=== PATIENT | female | born 1975 | race Caucasian/White ===

== ENCOUNTER 2017-04-02 09:17 | Day surgery (SDC) | payer OTHER ==
[2017-03-31 10:37] VITALS: BMI 29.2
[~2017-04-02 09:17] MED LIST: DEXAMETHASONE SOD PHOSPHATE 10 MG/ML 1 ML VIAL IV ONE; HEPARIN SODIUM,PORCINE 5,000 UNIT/ML 1 ML VIAL SQ ONE; LACTATED RINGERS 1,000 ML IV SCH; ONDANSETRON 4 MG/2 ML VIAL IVP ONE; ceFAZolin 2 GM in SODIUM CHLORIDE 0.9% 100 ML IVPB ONE
[2017-04-02] MEDS ORDERED: LIDOCAINE 1% 20 ML VIAL (10MG/ML) FOR IV START INTRADERMA ONE (10:13)
[2017-04-02] MEDS: MIDAZOLAM 2 MG/2 ML VIAL IV PRN ×3 (10:14→12:20)
--- NOTE | 2017-04-02 10:54 | P.GSHP ---
History of Present Illness H&P Date: 04/02/17 Chief Complaint: T This a 41-year-old female who has had complaints of right upper quadrant pain. Her recent HIDA scan shows an elevated ejection fraction of percent consistent with biliary hyperkinesia. - Constitutional Constitutional: Reports as per HPI Past Medical History Additional Past Medical History / Comment(s): HX CROHN'S, CHRONIC SHOULDER PAIN ; Cyst under L armpit History of Any Multi-Drug Resistant Organisms: MRSA Date of last positivie culture/infection: 2000 MDRO Source:: abdomen Past Surgical History: Bowel Resection, Section, Hysterectomy, Joint Replacement Additional Past Surgical History / Comment(s): RT SHOULDER REPLACEMENT Past Anesthesia/Blood Transfusion Reactions: Motion Sickness Additional Past Anesthesia/Blood Transfusion Reaction / Comment(s): pt adopted Past Psychological History: Anxiety, Depression Smoking Status: Current every day smoker Past Alcohol Use History: Occasional Additional Past Alcohol Use History / Comment(s): smoked for about 10 years 1ppd Past Drug Use History: Marijuana Additional Drug Use History / Comment(s): pt reports occasional current use - Past Family History Mother Family Medical History: Unable to Obtain Additional Family Medical History / Comment(s): pt adopted Medications and Allergies Home Medications Medication Instructions Recorded Confirmed Type FLUoxetine HCL [PROzac] 40 mg PO QAM 07/01/14 04/02/17 History OLANZapine [ZyPREXA] 10 mg PO HS 05/05/16 04/02/17 History traZODone HCL 150 mg PO HS 05/21/16 04/02/17 History Ibuprofen [Motrin] 800 mg PO Q8HR PRN 08/09/16 04/02/17 History Loperamide [Imodium] 2 mg PO BID PRN 08/09/16 04/02/17 History Ondansetron [Zofran] 4 mg PO Q8HR PRN 08/09/16 04/02/17 History traMADol HCL [Ultram] 50 mg PO QID PRN 08/09/16 04/02/17 History busPIRone HCL [Buspar] 30 mg PO BID 09/03/16 04/02/17 History metroNIDAZOLE [Flagyl] 500 mg PO BID 09/03/16 04/02/17 History Allergies Allergy/AdvReac Type Severity Reaction Status Date / Time corn Allergy Nausea & Verified 04/02/17 09:49 Vomiting & Diarrhea grass pollen-perennial rye, Allergy Itching Verified 04/02/17 09:49 standar [grass poll-perennial rye,std] ketorolac tromethamine Allergy Rash/Hives Verified 04/02/17 09:49 [From Toradol] Surgical - Exam Vital Signs Temp Pulse Resp BP Pulse Ox 99.6 F 72 16 109/64 98 04/02/17 09:55 04/02/17 09:55 04/02/17 09:55 04/02/17 09:55 04/02/17 09:55 - General well developed, no distress - Eyes PERRL - ENT normal pinna - Neck no masses - Respiratory normal expansion - Cardiovascular Rhythm: regular - Abdomen Mild right upper pain Abdomen: soft Assessment and Plan Plan: Abnormal HIDA scan Biliary hypokinesis Chronic cholecystitis We'll perform laparoscopic cholecystectomy.
[2017-04-02] MEDS ORDERED: HYDROmorphone (PF) 1 MG/ML ONE (11:04)
[2017-04-02] MEDS ORDERED: GLYCOPYRROLATE 0.2 MG/ML 2 ML VIAL ONE (11:04)
[2017-04-02] MEDS ORDERED: ROCURONIUM BROMIDE 10 MG/ML 10 ML VIAL IV ONE (11:04)
[2017-04-02] MEDS ORDERED: LIDOCAINE 1% INJ 10MG/ML (20 ML MDV) ONE (11:04)
[2017-04-02] MEDS ORDERED: PROPOFOL 10 MG/ML 20 ML VIAL IV ONE (11:04)
[2017-04-02] MEDS ORDERED: fentaNYL (PF) 50 MCG/ML 2 ML AMP ONE (11:04)
[2017-04-02] MEDS ORDERED: SUCCINYLCHOLINE CHLORIDE 100 MG/5 ML SYR IV ONE (11:04)
[2017-04-02] MEDS ORDERED: MIDAZOLAM 2 MG/2 ML VIAL ONE (11:04)
[2017-04-02] MEDS ORDERED: NEOSTIGMINE 1 MG/ML 10 ML VIAL ONE (11:04)
[2017-04-02] MEDS ORDERED: BUPIVACAIN-EPI 0.25%-1:200,000 30 ML VIAL SQ ONE (11:32)
--- NOTE | 2017-04-02 11:53 | P.OP ---
Date of Procedure: 04/02/17 Preoperative Diagnosis: Cholecystitis Postoperative Diagnosis: Cholecystitis Procedure(s) Performed: Laparoscopic cholecystectomy Anesthesia: CHAUNCEY DONOVAN Surgeon: Loki Dahl Estimated Blood Loss (ml): 5 Pathology: other (Gallbladder) Condition: stable Disposition: PACU Description of Procedure: The patient was placed on the operating table. The patient received a general endotracheal tube anesthesia. The patients abdomen was prepped and draped in the usual sterile fashion. Through an infraumbilical stab incision, the fascia of the anterior abdominal wall was grasped with a pair of Kochers and then the Veress needle was placed in the peritoneal cavity. Position of the Veress needle was confirmed with positive drop test. The abdomen was then insufflated. After adequate insufflation, the 10 mm trocar was placed in the peritoneal cavity. Following this the laparoscope was placed in the peritoneal cavity. The patient was placed in the head-up, right side up position and then a 5 mm trocar was placed in the right lateral and right subcostal position under direct visualization. A 8 mm trocar was placed in the epigastric position. The gallbladder was grasped in the fundus and infundibulum. Traction on the gallbladder was placed in the lateral and the cephalad positions. The triangle of Calot was visualized.. The cystic duct was bluntly dissected until the union of the cystic duct and common bile duct was seen. The cystic duct was then divided and sealed with the Harmonic scissors. A PDS Endoloop was then placed throughout the cystic duct stump. The cystic artery divided and sealed with the Harmonic scissors. The gallbladder was then removed from the liver bed using Harmonic scissors. The gallbladder was then extracted through the epigastric port site. Operative field was checked for any bleeding spots and Harmonic scissors was used to coagulate the liver bed. The abdomen was irrigated. The trocars were removed. The skin was closed using interrupted 3-0 Vicryl suture. Dermabond dressing were applied. The patient tolerated the procedure well.
[2017-04-02] MEDS: HYDROmorphone 1 MG/ML 1 ML SYRINGE IVP PRN ×4 (12:00→12:24)
[2017-04-02 12:08] VITALS: TEMP 98.6
[2017-04-02 13:17] VITALS: RESP 18
[2017-04-02] MEDS ORDERED: HYDROcodone/APAP 7.5-325MG 1 EACH TAB PO ONE (13:22)
[2017-04-02 13:51] VITALS: BP 118/65; PULSE 85
== END 2017-04-02 14:11 | disposition home or self-care (01) ==
LOC: OR 09:17
PROVIDERS: ATTEND Surgery
DX: K81.1 Chronic cholecystitis (principal); Z87.19 Personal history of other diseases of the digestive system; F41.9 Anxiety disorder, unspecified; F32.9 Major depressive disorder, single episode, unspecified; F17.200 Nicotine dependence, unspecified, uncomplicated; Z79.899 Other long term (current) drug therapy; Z88.8 Allergy status to other drugs, medicaments and biological substances
CPT/HCPCS: 88304; 47562; J2250; J1644; J1100; J2710; J0690; J2405; J2001; J3010; J1170; J0330; J2704

== ENCOUNTER 2017-04-08 12:26 | Inpatient (IN) | payer OTHER ==
[2017-04-08] MEDS ORDERED: SODIUM CHLORIDE 0.9% 1,000 ML IV STA (14:17)
[2017-04-08] MEDS ORDERED: HYDROmorphone 1 MG/ML 1 ML SYRINGE IVP STA (14:17)
[2017-04-08] MEDS ORDERED: ONDANSETRON 4 MG/2 ML VIAL IVP STA (14:17)
--- NOTE | 2017-04-08 14:20 | ED ---
General Adult HPI - General Chief complaint: Abdominal Pain Stated complaint: NVD post surgery Time Seen by Provider: 04/08/17 13:00 Source: patient, RN notes reviewed Mode of arrival: ambulatory Limitations: no limitations - History of Present Illness Initial comments: This is a 41-year-old female who presents emergency Department complaining of abdominal pain for the last 30 days. Patient states she had her gallbladder out 6 days ago because the surgeon thought that would solve her abdominal pain problems. Patient states she stopped vomiting for 3 days. Over the last 3 days continues to vomit heavily. Patient states she's also having diarrhea. Patient denies any fever or chills. Patient states she has diffuse abdominal painat that spot of abdominal pain. Patient states she also has been drinking alcohol but she states not a lot. Patient denies any headache patient denies numbness weakness. Patient denies lightheadedness dizziness or near syncopal episode. Patient denies any dysuria hematuria urinary frequency. - Related Data Home Medications Medication Instructions Recorded Confirmed FLUoxetine HCL [PROzac] 40 mg PO QAM 07/01/14 04/08/17 OLANZapine [ZyPREXA] 10 mg PO HS 05/05/16 04/08/17 traZODone HCL 150 mg PO HS 05/21/16 04/08/17 Loperamide [Imodium] 2 mg PO BID PRN 08/09/16 04/08/17 Ondansetron [Zofran] 4 mg PO Q8HR PRN 08/09/16 04/08/17 busPIRone HCL [Buspar] 30 mg PO BID 09/03/16 04/08/17 HYDROcodone/APAP 7.5-325MG [[place] 1 tab PO Q4H PRN 04/08/17 04/08/17 7.5] Previous Rx's Medication Instructions Recorded Docusate [Colace] 100 mg PO BID #20 capsule 04/02/17 Allergies Allergy/AdvReac Type Severity Reaction Status Date / Time corn Allergy Nausea & Verified 04/08/17 15:56 Vomiting & Diarrhea grass pollen-perennial rye, Allergy Itching Verified 04/08/17 15:56 standar [grass poll-perennial rye,std] ketorolac tromethamine Allergy Rash/Hives Verified 04/08/17 15:56 [From Toradol] Review of Systems ROS Statement: Those systems with pertinent positive or pertinent negative responses have been documented in the HPI. ROS Other: All systems not noted in ROS Statement are negative. Past Medical History Additional Past Medical History / Comment(s): HX CROHN'S, CHRONIC SHOULDER PAIN ; Cyst under L armpit History of Any Multi-Drug Resistant Organisms: MRSA Date of last positivie culture/infection: 2000 MDRO Source:: abdomen Past Surgical History: Bowel Resection, Section, Cholecystectomy, Hysterectomy, Joint Replacement Additional Past Surgical History / Comment(s): RT SHOULDER REPLACEMENT Past Anesthesia/Blood Transfusion Reactions: Motion Sickness Additional Past Anesthesia/Blood Transfusion Reaction / Comment(s): pt adopted Past Psychological History: Anxiety, Depression Smoking Status: Current every day smoker Past Alcohol Use History: Occasional Additional Past Alcohol Use History / Comment(s): smoked for about 10 years 1ppd Past Drug Use History: Marijuana Additional Drug Use History / Comment(s): pt reports occasional current use - Past Family History Mother Family Medical History: Unable to Obtain Additional Family Medical History / Comment(s): pt adopted General Exam - General Exam Comments Initial Comments: GENERAL: Patient is well-developed and well-nourished. Patient is nontoxic and well- hydrated and is in mild distress. Patient has alcohol on her breath. ENT: Neck is soft and supple. No significant lymphadenopathy is noted. Oropharynx is clear. Moist mucous membranes. Neck has full range of motion without eliciting any pain. EYES: The sclera were anicteric and conjunctiva were pink and moist. Extraocular movements were intact and pupils were equal round and reactive to light. Eyelids were unremarkable. PULMONARY: Unlabored respirations. Good breath sounds bilaterally. No audible rales rhonchi or wheezing was noted. CARDIOVASCULAR: There is a regular rate and rhythm without any murmurs gallops or rubs. ABDOMEN: Abdomen is mildly distended and diffusely tender no rebound or guarding is note SKIN: Skin is clear with no lesions or rashes and otherwise unremarkable. NEUROLOGIC: Patient is alert and oriented x3. Cranial nerves II through XII are grossly intact. Motor and sensory are also intact. Normal speech, volume and content. Symmetrical smile. MUSCULOSKELETAL: Normal extremities with adequate strength and full range of motion. No lower extremity swelling or edema. No calf tenderness. LYMPHATICS: No significant lymphadenopathy is noted PSYCHIATRIC: Normal psychiatric evaluation. Limitations: no limitations Course Vital Signs 04/08/17 04/08/17 12:53 15:58 Temperature 99.5 F 98.8 F Pulse Rate 122 H 95 Respiratory 20 16 Rate Blood Pressure 119/59 104/59 O2 Sat by Pulse 96 99 Oximetry Medical Decision Making - Lab Data Result diagrams: 04/08/17 14:20 04/08/17 14:20 Lab Results 04/08/17 04/08/17 04/08/17 Range/Units 14:20 14:20 14:20 WBC 8.3 (3.8-10.6) k/uL RBC 4.74 (3.80-5.40) m/uL Hgb 15.6 (11.4-16.0) gm/dL Hct 46.8 H (34.0-46.0) % MCV 98.8 (80.0-100.0) fL MCH 32.9 (25.0-35.0) pg MCHC 33.3 (31.0-37.0) g/dL RDW 14.5 (11.5-15.5) % Plt Count 258 (150-450) k/uL Neutrophils % 69 % Lymphocytes % 19 % Monocytes % 7 % Eosinophils % 2 % Basophils % 0 % Neutrophils # 5.7 (1.3-7.7) k/uL Lymphocytes # 1.6 (1.0-4.8) k/uL Monocytes # 0.6 (0-1.0) k/uL Eosinophils # 0.1 (0-0.7) k/uL Basophils # 0.0 (0-0.2) k/uL Sodium 142 (137-145) mmol/L Potassium 4.1 (3.5-5.1) mmol/L Chloride 108 H (98-107) mmol/L Carbon Dioxide 16 L (22-30) mmol/L Anion Gap 18 mmol/L BUN 8 (7-17) mg/dL Creatinine 0.80 (0.52-1.04) mg/dL Est GFR (MDRD) Af Amer >60 (>60 ml/min/1.73 sqM) Est GFR (MDRD) Non-Af >60 (>60 ml/min/1.73 sqM) Glucose 102 H (74-99) mg/dL Plasma Lactic Acid Dion 1.9 (0.7-2.0) mmol/L Calcium 9.9 (8.4-10.2) mg/dL Total Bilirubin 1.7 H (0.2-1.3) mg/dL AST 235 H (14-36) U/L ALT 136 H (9-52) U/L Alkaline Phosphatase 273 H (38-126) U/L Total Protein 8.3 H (6.3-8.2) g/dL Albumin 5.0 (3.5-5.0) g/dL Amylase 412 H* (30-110) U/L Lipase 6178 H (23-300) U/L Urine Color Urine Appearance (Clear) Urine pH (5.0-8.0) Ur Specific [place] (1.001-1.035) Urine Protein (Negative) Urine Glucose (UA) (Negative) Urine Ketones (Negative) Urine Blood (Negative) Urine Nitrite (Negative) Urine Bilirubin (Negative) Urine Urobilinogen (<2.0) mg/dL Ur Leukocyte Esterase (Negative) Serum Alcohol 25 mg/dL 04/08/17 Range/Units 14:20 WBC (3.8-10.6) k/uL RBC (3.80-5.40) m/uL Hgb (11.4-16.0) gm/dL Hct (34.0-46.0) % MCV (80.0-100.0) fL MCH (25.0-35.0) pg MCHC (31.0-37.0) g/dL RDW (11.5-15.5) % Plt Count (150-450) k/uL Neutrophils % % Lymphocytes % % Monocytes % % Eosinophils % % Basophils % % Neutrophils # (1.3-7.7) k/uL Lymphocytes # (1.0-4.8) k/uL Monocytes # (0-1.0) k/uL Eosinophils # (0-0.7) k/uL Basophils # (0-0.2) k/uL Sodium (137-145) mmol/L Potassium (3.5-5.1) mmol/L Chloride (98-107) mmol/L Carbon Dioxide (22-30) mmol/L Anion Gap mmol/L BUN (7-17) mg/dL Creatinine (0.52-1.04) mg/dL Est GFR (MDRD) Af Amer (>60 ml/min/1.73 sqM) Est GFR (MDRD) Non-Af (>60 ml/min/1.73 sqM) Glucose (74-99) mg/dL Plasma Lactic Acid Dion (0.7-2.0) mmol/L Calcium (8.4-10.2) mg/dL Total Bilirubin (0.2-1.3) mg/dL AST (14-36) U/L ALT (9-52) U/L Alkaline Phosphatase (38-126) U/L Total Protein (6.3-8.2) g/dL Albumin (3.5-5.0) g/dL Amylase (30-110) U/L Lipase (23-300) U/L Urine Color Yellow Urine Appearance Clear (Clear) Urine pH 6.5 (5.0-8.0) Ur Specific [place] 1.007 (1.001-1.035) Urine Protein Trace H (Negative) Urine Glucose (UA) Negative (Negative) Urine Ketones Negative (Negative) Urine Blood Negative (Negative) Urine Nitrite Negative (Negative) Urine Bilirubin Negative (Negative) Urine Urobilinogen <2.0 (<2.0) mg/dL Ur Leukocyte Esterase Negative (Negative) Serum Alcohol mg/dL Disposition Clinical Impression: Pancreatitis, Alcohol abuse Disposition: ADMITTED IP TO THIS HOSP Referrals: Louann Carlos MD [Primary Care Provider] - 1-2 days Time of Disposition: 16:14
[2017-04-08 14:34] LABS: Basophils % (A) 0 %; CH 34.3; CHCM 34.8; Eosinophils # (A) 0.1 k/uL (0-0.7); Eosinophils % (A) 2 %; HCT 46.8 % (34.0-46.0); HDW 2.68; HGB 15.6 gm/dL (11.4-16.0); Luc # (Auto) 0.22; Luc % (Auto) 3; Lymphocytes # (A) 1.6 k/uL (1.0-4.8); Lymphocytes % (A) 19 %; MCH 32.9 pg (25.0-35.0); MCHC 33.3 g/dL (31.0-37.0); MCV 98.8 fL (80.0-100.0); Mean Platelet Volume 7.3; Monocytes # (A) 0.6 k/uL (0-1.0); Monocytes % (A) 7 %; Neutrophils # (A) 5.7 k/uL (1.3-7.7); Neutrophils % (A) 69 %; RBC 4.74 m/uL (3.80-5.40); RDW 14.5 % (11.5-15.5); WBC 8.3 k/uL (3.8-10.6); WBC (Perox) 7.96
[2017-04-08 14:35] LABS: Appearance,Urine Clear (Clear); Bilirubin,Urine Negative (Negative); Glucose,Urine (UA) Negative (Negative); Ketones,Urine Negative (Negative); Leukocyte Esterase,Urine Negative (Negative); Nitrite,Urine Negative (Negative); PH, Urine 6.5 (5.0-8.0); Protein,Urine Trace (Negative); Specific Gravity,Urine 1.007 (1.001-1.035); UA Billing (MACRO vs. MICRO) CHEM; Urobilinogen,Urine <2.0 mg/dL (<2.0)
[2017-04-08 14:52] LABS: ALT 136 U/L (9-52); AST 235 U/L (14-36); Alcohol 25 mg/dL; Alkaline Phosphatase 273 U/L (38-126); Anion Gap 18 mmol/L; Blood Urea Nitrogen 8 mg/dL (7-17); Calcium 9.9 mg/dL (8.4-10.2); Carbon Dioxide 16 mmol/L (22-30); Chloride 108 mmol/L (98-107); Glucose 102 mg/dL (74-99); Non-African American GFR(MDRD) >60 (>60 ml/min/1.73 sqM); Potassium 4.1 mmol/L (3.5-5.1); Sodium 142 mmol/L (137-145); Total Bilirubin 1.7 mg/dL (0.2-1.3); Total Protein 8.3 g/dL (6.3-8.2)
[2017-04-08 15:06] LABS: Amylase 412 U/L (30-110)
[2017-04-08] MEDS ORDERED: SODIUM CHLORIDE 0.9% 1,000 ML IV ONE (16:15)
[2017-04-08] MEDS: SODIUM CHLORIDE 0.9% 1,000 ML IV SCH ×2 (16:31→23:41)
[2017-04-08 17:13] LABS: Cholesterol 236 mg/dL (<200); HDL Cholesterol 61 mg/dL (40-60); Triglycerides 279 mg/dL (<150)
--- NOTE | 2017-04-08 17:47 | HP ---
DATE OF ADMISSION: Patient is a 41-year-old female who came in with complaints of abdominal pain in the epigastric area. Patient had this abdominal pain about 40 days and patient was diagnosed with cholelithiasis and cholecystitis and patient underwent cholecystectomy recently about 6 days ago. Patient's pain is sharp in nature 09/01 although patient does not appear to be in 09/01. Patient appeared to be comfortable, although she just received Dilaudid. When I evaluated the patient patient's pain radiates to the back. Patient was found to have elevated lipase and patient denies any regular alcohol usage, although patient apparently had a history of alcoholism in the past. Patient did drink alcohol today. Serum alcohol level of 25. Patient drinks alcohol twice a week she says. I am also obtaining triglyceride levels and I will also obtain an ultrasound of the liver to rule out any cholelithiasis. Patient does have elevated liver enzymes as well and lactic acid is 1.9. Patient will be started on IV fluids and patient will be made n.p.o. Will also obtain triglyceride level. Patient has occasional episodes of diarrhea and patient was having nausea, vomiting, multiple episodes yesterday. REVIEW OF SYSTEMS: CONSTITUTIONAL: No fever, no malaise, no fatigue. HEENT: No recent visual problems or hearing problems. Denied any sore throat. CARDIOVASCULAR: No chest pain, orthopnea, PND, no palpitations, no syncope. PULMONARY: No shortness of breath, no cough, no hemoptysis. GASTROINTESTINAL: As described in HPI. NEUROLOGICAL: No headaches, no weakness, no numbness. HEMATOLOGICAL: Denies any bleeding or petechiae. GENITOURINARY: Denies any burning micturition, frequency, or urgency. MUSCULOSKELETAL/RHEUMATOLOGICAL: Denies any joint pain, swelling, or any muscle pain. ENDOCRINE: Denies any polyuria or polydipsia. The rest of the 14 point review of systems is negative. Home medications include: Fluoxetine, olanzapine, trazodone, Imodium, ondansetron, buspirone, [place]. ALLERGIES: GRASS, POLLEN, KETOROLAC. Patient does have a history of alcoholism and psychiatric history appears to have either schizophrenia or bipolar disorder. SOCIAL HISTORY: Patient continues to smoke. Alcohol use as mentioned above. Denied any drug abuse. The patient smokes 1 pack per day. Patient used to use marijuana in the past. FAMILY HISTORY: Patient was adopted and she does not know any of her biological family history. PHYSICAL EXAMINATION: VITAL SIGNS: Temperature 98.1, pulse of 95, respiratory rate of 16, blood pressure is 104/59, saturating at 99% on room air. GENERAL: The patient is alert and oriented x3, not in any acute distress. Well developed, well nourished. HEENT: Pupils are round and equally reacting to light. EOMI. No scleral icterus. No conjunctival pallor. Normocephalic, atraumatic. No pharyngeal erythema. No thyromegaly. CARDIOVASCULAR: S1 and S2 present. No murmurs, rubs, or gallops. PULMONARY: Chest is clear to auscultation, no wheezing or crackles. ABDOMEN: Minimal epigastric abdominal tenderness was appreciated. No rebound or rigidity. Abdomen is soft. MUSCULOSKELETAL: No joint swelling or deformity. EXTREMITIES: No cyanosis, clubbing, or pedal edema. NEUROLOGICAL: Gross neurological examination did not reveal any focal deficits. SKIN: No rashes. LABORATORY DATA: Significant for low bicarbonate of 16, anion gap of 18, lactic acid is 1.9, chloride is 108, AST and ALT are elevated at 235 and 136. Alkaline phosphatase 273. Lipase is 6178. UA is essentially within normal limits. ASSESSMENT AND PLAN: 1. Abdominal pain, probably related to pancreatitis mostly alcoholic pancreatitis, although patient denies any regular alcohol use. I will also obtain a lipid panel. P.o. pain medications and IV fluids. 2. Metabolic acidosis, combination of minimal lactic acidosis along with hyperchloremia. Patient will be continued on IV fluids in the form of normal saline in spite of hyperchloremia and possibly alcoholic is also contributing to part of anion gap metabolic acidosis. 3. Elevated liver enzymes. I will rule out choledocholithiasis. My suspicion is low for ascending cholangitis. I will obtain ultrasound of the biliary tract. Patient had a recent cholecystectomy. 4. Bipolar versus schizophrenia versus depression for which her home medications will be continued. The patient will be made n.p.o. except meds. 5. Possible alcohol abuse. Extensive counseling was provided. Patient will be watched for withdrawals. Patient will be on Protonix for possibility of gastritis related to alcohol.
[2017-04-08 18:18] VITALS: BMI 29.1
[2017-04-08] MEDS: MORPHINE SULFATE 4 MG/ML SYRINGE IVP SCH (20:00)
[2017-04-08] MEDS: ONDANSETRON 4 MG/2 ML VIAL IVP PRN (20:06)
[2017-04-08] MEDS: NICOTINE 21MG/24HR PATCH TRANSDERM SCH (20:49)
[2017-04-08] MEDS: PANTOPRAZOLE 40 MG/10 ML VIAL IVP SCH (20:49)
[2017-04-08] MEDS: busPIRone HCl 10 MG TAB PO SCH (20:56)
[2017-04-08] MEDS ORDERED: traZODone HCL 50 MG TAB PO SCH (21:00)
[2017-04-08] MEDS ORDERED: OLANZapine 10 MG TAB PO SCH (21:00)
[2017-04-09] MEDS: MORPHINE SULFATE 4 MG/ML SYRINGE IVP SCH ×3 (04:13→08:12)
[2017-04-09 07:33] VITALS: BP 113/69; PULSE 69; TEMP 97.3
[2017-04-09] MEDS: ONDANSETRON 4 MG/2 ML VIAL IVP PRN ×2 (08:11→13:40)
[2017-04-09] MEDS: busPIRone HCl 10 MG TAB PO SCH (08:11)
[2017-04-09] MEDS: NICOTINE 21MG/24HR PATCH TRANSDERM SCH (08:11)
--- NOTE | 2017-04-09 08:19 | US ---
EXAMINATION TYPE: US gallbladder DATE OF EXAM: 04/08/2017 5:04 PM COMPARISON: NONE CLINICAL HISTORY: 41-year-old female elevated liver enzymes. NVD, GB removed 6 days ago. TECHNIQUE: Multiple sonographic images of the right upper quadrant are obtained. FINDINGS: Liver Length: 14.3 cm CBD: 0.7 cm CHD: 0.8 cm Right Kidney: 11.6 x 5.4 x 5.0 cm Pancreas: Suboptimal visualization of the pancreatic tail secondary to shadowing from bowel gas. The remainder is echogenic in appearance, questionable clinical significance. Liver: Normal homogeneous echotexture without focal lesion. Gallbladder: Surgically absent CBD: Mildly dilated. Right Kidney: No hydronephrosis. IMPRESSION: 1. The bile duct is mildly dilated (8 mm). The bile duct can measure up to 1 cm after cholecystectomy and still be normal. However, as the patient's cholecystectomy was relatively recent, recommend jennifer elation with alkaline phosphatase and bilirubin levels to exclude the possibility of biliary obstruct ion. 2. Echogenic appearance of the pancreas of questionable clinical significance. Correlate with amylase and lipase levels to exclude mild inflammation.
[2017-04-09] MEDS: SODIUM CHLORIDE 0.9% 1,000 ML IV SCH (08:21)
--- NOTE | 2017-04-09 08:50 | P.CONS ---
History of Present Illness - Reason for Consult Consult date: 04/09/17 Pancreatitis Requesting physician: Luz Velez - History of Present Illness 41-year-old female with a past medical history of Crohn's disease, bowel resection, remote EtOH abuse, cholecystectomy, ADHD, anxiety, bipolar depression , PTSD, cigarette marijuana usage. Patient has experienced intractable nausea vomiting abdominal pain for more than a month. Recently underwent laparoscopic cholecystectomy 04/02/[address] Dahl for cholecystitis. Surgical pathology indicated chronic cholecystitis and cholesterolosis with cholesterol polyp formation. Consultation requested for pancreatitis. Postoperatively patient stated her nausea vomiting abdominal pain subsided for about 2-3 days but then the pain returned. She drank 16-24 ounces of peppermint schnapps yesterday to help control the pain. Admission lipase 6178. Amylase 412. Total bilirubin 1.7. AST 235. ALT 136. Alkaline phosphatase 273. Serum alcohol level 25. Triglycerides 279. White count 8.3. Hemoglobin 15.6. Platelet 258. There are no prior laboratory studies to review since July 2016. Ultrasound abdomen reported CBD 7 mm. Common hepatic duct 8 mm. Echogenic appearance of pancreas possible mild inflammation. Review of Systems Constitutional: Denies fever, chills, sweats, weight gain, or loss. HEENT: Negative for migraines, blurred vision or loss, earaches, drainage, tinnitus, oral mucosal lesions, dysphagia, or odynophagia. CARDIAC: Negative for chest pain, arrhythmias, or palpitation. RESPIRATORY: Pneumonia. Nicotine cigarette dependency. Marijuana usage. Negative for shortness of breath, hemoptysis, cough, or sputum production. GI: See HPI for pertinent findings. : Negative for hematuria, urgency, frequency, polyuria, or dysuria. GYNc: Denies possibility of . Negative vaginal discharge. MUSCULOSKELETAL: Negative for muscle aches, swelling, arthritis, and arthralgias. NEUROLOGIC: Negative for stroke or TIA. ENDOCRINE: Negative for thyroid problems. SKIN: History of MRSA. Negative for rash or itching. PSYCHIATRIC: ADHD. Anxiety. Bipolar depression. PTSD. All systems: negative (See HPI) Past Medical History Past Medical History: GI Bleed, Pneumonia Additional Past Medical History / Comment(s): HX CROHN'S, CHRONIC SHOULDER PAIN ; Cyst under L armpit, cellulitis History of Any Multi-Drug Resistant Organisms: MRSA Year Discovered:: 2000 MDRO Source:: abdomen Past Surgical History: Bowel Resection, Section, Cholecystectomy, Hysterectomy, Joint Replacement Additional Past Surgical History / Comment(s): RT SHOULDER REPLACEMENT Past Anesthesia/Blood Transfusion Reactions: Motion Sickness Additional Past Anesthesia/Blood Transfusion Reaction / Comm: pt adopted Past Psychological History: ADD/ADHD, Anxiety, Bipolar, Depression, PTSD Smoking Status: Current every day smoker Past Alcohol Use History: Occasional Additional Past Alcohol Use History / Comment(s): smoked for about 20 years 1ppd Past Drug Use History: Marijuana Additional Drug Use History / Comment(s): pt reports occasional current use - Past Family History Mother Family Medical History: Unable to Obtain Additional Family Medical History / Comment(s): pt adopted Medications and Allergies Home Medications Medication Instructions Recorded Confirmed Type FLUoxetine HCL [PROzac] 40 mg PO QAM 07/01/14 04/08/17 History OLANZapine [ZyPREXA] 10 mg PO HS 05/05/16 04/08/17 History traZODone HCL 150 mg PO HS 05/21/16 04/08/17 History Loperamide [Imodium] 2 mg PO BID PRN 08/09/16 04/08/17 History Ondansetron [Zofran] 4 mg PO Q8HR PRN 08/09/16 04/08/17 History busPIRone HCL [Buspar] 30 mg PO BID 09/03/16 04/08/17 History HYDROcodone/APAP 7.5-325MG [[place] 1 tab PO Q4H PRN 04/08/17 04/08/17 History 7.5] Allergies Allergy/AdvReac Type Severity Reaction Status Date / Time corn Allergy Nausea & Verified 04/08/17 15:56 Vomiting & Diarrhea grass pollen-perennial rye, Allergy Itching Verified 04/08/17 15:56 standar [grass poll-perennial rye,std] ketorolac tromethamine Allergy Rash/Hives Verified 04/08/17 15:56 [From Toradol] Physical Exam Vitals: Vital Signs Temp Pulse Pulse Resp BP BP Pulse Ox 04/09/17 07:00 97.3 F L 69 20 113/69 97 04/09/17 04:11 73 112/65 04/08/17 22:58 97.1 F L 63 19 94/48 94 L 04/08/17 17:45 97.1 F L 69 20 94/59 95 04/08/17 15:58 98.8 F 95 16 104/59 99 04/08/17 12:53 99.5 F 122 H 20 119/59 96 Intake and Output 04/08/17 04/09/17 04/09/17 22:59 06:59 14:59 Other: # Voids 0 1 Weight 77 kg General appearance: The patient is alert, oriented, in no acute distress. HET: Head is normocephalic and atraumatic. Pupils are equal and reactive. Oropharynx is clear without lesions. Neck: Supple without lymphadenopathy. Trachea midline. Heart: S1 S2. Regular rate and rhythm. Lungs: No crackles or wheezes are heard. Abdomen: Soft, laparoscopic incisions with Steri-Strips without erythema or drainage, mild diffuse tenderness to the midepigastric left upper quadrant, nondistended with bowel sounds. No peritoneal signs. No palpable organomegaly or masses. Extremities: Normal skin color and turgor. No cyanosis, rash, ulceration, clubbing, or edema. Radial and pedal pulses are 2/4 bilaterally. Neurological: No focal deficits. Strength and sensation are grossly intact. Results CBC & Chem 7: 04/08/17 14:20 04/08/17 14:20 Labs: Abnormal Lab Results - Last 24 Hours (Table) 04/08/17 04/08/17 04/08/17 Range/Units 14:20 14:20 14:20 Hct 46.8 H (34.0-46.0) % Chloride 108 H (98-107) mmol/L Carbon Dioxide 16 L (22-30) mmol/L Glucose 102 H (74-99) mg/dL Total Bilirubin 1.7 H (0.2-1.3) mg/dL AST 235 H (14-36) U/L ALT 136 H (9-52) U/L Alkaline Phosphatase 273 H (38-126) U/L Total Protein 8.3 H (6.3-8.2) g/dL Triglycerides (<150) mg/dL Cholesterol (<200) mg/dL LDL Cholesterol, Calc (0-99) mg/dL HDL Cholesterol (40-60) mg/dL Amylase 412 H* (30-110) U/L Lipase 6178 H (23-300) U/L Urine Protein Trace H (Negative) 04/08/17 Range/Units 14:20 Hct (34.0-46.0) % Chloride (98-107) mmol/L Carbon Dioxide (22-30) mmol/L Glucose (74-99) mg/dL Total Bilirubin (0.2-1.3) mg/dL AST (14-36) U/L ALT (9-52) U/L Alkaline Phosphatase (38-126) U/L Total Protein (6.3-8.2) g/dL Triglycerides 279 H (<150) mg/dL Cholesterol 236 H (<200) mg/dL LDL Cholesterol, Calc 119 H (0-99) mg/dL HDL Cholesterol 61 H (40-60) mg/dL Amylase (30-110) U/L Lipase (23-300) U/L Urine Protein (Negative) US - abdomen: report reviewed Assessment and Plan (1) Alcoholic hepatitis Narrative/Plan: Suspect elevated liver enzymes are secondary to acute alcohol hepatitis however postoperative choledocholithiasis cannot be entirely excluded but felt to be less likely. Mild dilation of CBD postoperatively can be seen with post cholecystectomy changes. Status: Acute (2) Status post laparoscopic cholecystectomy Status: Acute (3) Pancreatitis Status: Acute (4) H/O ETOH abuse Status: Acute Plan: 1. Ultrasound abdomen reviewed. Await morning chemistries if improved continue supportive measures. ERCP not indicated at this time. 2. Nothing by mouth except medications. 3. Morning chemistries including liver function tests, amylase, lipase pending. 3. Continue GI prophylaxis and supportive measures. 4. Will follow with you. Alcohol abstinence strongly advised. Thank you for this kind referral and the opportunity to participate in the care of your patient. This consultation was discussed with Dr. Alford. The impression and plan of care have been directed as dictated.
[2017-04-09] MEDS ORDERED: FLUoxetine HCL 20 MG CAP PO SCH (09:00)
[2017-04-09 09:13] LABS: CH 33.1; CHCM 33.3; HCT 39.6 % (34.0-46.0); HDW 2.71; HGB 13.1 gm/dL (11.4-16.0); MCHC 33.1 g/dL (31.0-37.0); MCV 99.8 fL (80.0-100.0); Macrocytosis Slight; Mean Platelet Volume 7.5; RBC 3.96 m/uL (3.80-5.40); RDW 14.1 % (11.5-15.5); WBC 4.2 k/uL (3.8-10.6)
[2017-04-09 09:29] LABS: ALT 82 U/L (9-52); AST 46 U/L (14-36); Alkaline Phosphatase 156 U/L (38-126); Amylase 65 U/L (30-110); Anion Gap 7 mmol/L; Blood Urea Nitrogen 9 mg/dL (7-17); Calcium 8.2 mg/dL (8.4-10.2); Carbon Dioxide 24 mmol/L (22-30); Chloride 113 mmol/L (98-107); Glucose 88 mg/dL (74-99); Non-African American GFR(MDRD) >60 (>60 ml/min/1.73 sqM); Potassium 4.2 mmol/L (3.5-5.1); Sodium 144 mmol/L (137-145); Total Protein 6.2 g/dL (6.3-8.2)
[2017-04-09] MEDS: PANTOPRAZOLE 40 MG/10 ML VIAL IVP SCH (09:56)
[2017-04-09] MEDS ORDERED: MORPHINE SULFATE 4 MG/ML SYRINGE IVP PRN (11:08)
--- NOTE | 2017-04-09 12:33 | PN ---
Patient is a 41-year-old admitted with abdominal pain secondary to pancreatitis, which improved at this point of time. Liver enzymes improved and patient has a mildly dilated common bile duct on the ultrasound and will advance the diet. Counseling regarding alcohol use was provided. Will advance the diet today. If she is doing okay, patient will be discharged tomorrow. REVIEW OF SYSTEMS: ABDOMINAL: Continued abdominal pain, although the nausea improved and patient appears to have a bit of narcotic-seeking behavior and patient is taking morphine on a regular basis. CARDIOVASCULAR: No chest pain, no orthopnea, no PND, no palpitations. PULMONARY: Denied any shortness of breath. No cough or hemoptysis. NEUROLOGIC: No headaches, no weakness, no numbness. Medications were reviewed. PHYSICAL EXAMINATION: VITAL SIGNS: Temperature 97.3, pulse of 69, respiratory rate of 20, blood pressure is 113/69, saturating at 97% on room air. GENERAL: The patient is alert and oriented x3, not in any acute distress. Well developed, well nourished. HEENT: Pupils are round and equally reacting to light. EOMI. No scleral icterus. No conjunctival pallor. Normocephalic, atraumatic. No pharyngeal erythema. No thyromegaly. CARDIOVASCULAR: S1 and S2 present. No murmurs, rubs, or gallops. PULMONARY: Chest is clear to auscultation, no wheezing or crackles. ABDOMEN: Soft, nontender, nondistended, normoactive bowel sounds. No palpable organomegaly. MUSCULOSKELETAL: No joint swelling or deformity. EXTREMITIES: No cyanosis, clubbing, or pedal edema. NEUROLOGICAL: Gross neurological examination did not reveal any focal deficits. SKIN: No rashes. LABORATORY DATA: CBC, CMP abnormal for elevated chloride, because of which I am going to discontinue the IV fluids. Patient will be resumed on her home antidepressants and antipsychotics. ASSESSMENT AND PLAN: 1. Acute pancreatitis, mostly alcoholic. Triglycerides are not high enough to cause pancreatitis. 2. Rule out metabolic acidosis which improved, part of which is lactic acidosis and hyperchloremia contributing to some low bicarbonate as well. Her bicarbonate today is 24. 3. Elevated liver enzymes secondary to probably acute alcoholic hepatitis which are improving. 4. Bipolar disorder. 5. Alcohol abuse. Counseling was provided. Will advance the diet today. If she is doing okay clinically, patient probably can be discharged tomorrow. Will watch for any kind of withdrawals at this time.
[2017-04-09 13:14] LABS: Hepatitis B Surface Ag Index 0.05
[2017-04-09 13:20] LABS: Hepatitis B Core IgM Index 0.02
[2017-04-09 13:31] LABS: Hepatitis C Virus IgG Index 0.01
[2017-04-09 15:14] VITALS: RESP 18
[2017-04-10 15:06] LABS: Hepatitis C Virus IgG Ab Negative (Negative)
== END 2017-04-09 15:17 | disposition home or self-care (01) | DRG 439 ==
LOC: EC 12:26 → 4MS4W 16:15
PROVIDERS: ADMIT Internal Medicine; ATTEND Internal Medicine
DX: K85.20 Alcohol induced acute pancreatitis without necrosis or infection (principal); E87.2 Acidosis; E87.8 Other disorders of electrolyte and fluid balance, not elsewhere classified; K50.90 Crohn's disease, unspecified, without complications; K70.10 Alcoholic hepatitis without ascites; F31.9 Bipolar disorder, unspecified; Z90.49 Acquired absence of other specified parts of digestive tract; F10.20 Alcohol dependence, uncomplicated; F17.210 Nicotine dependence, cigarettes, uncomplicated; F41.9 Anxiety disorder, unspecified; F90.9 Attention-deficit hyperactivity disorder, unspecified type; F43.10 Post-traumatic stress disorder, unspecified; F12.90 Cannabis use, unspecified, uncomplicated; Y90.1 Blood alcohol level of 20-39 mg/100 ml; Z96.611 Presence of right artificial shoulder joint; Z88.9 Allergy status to unspecified drugs, medicaments and biological substances; Z79.899 Other long term (current) drug therapy
CPT/HCPCS: 36415; 76705; 80053; 80061; 80074; 80320; 81003; 82150; 83605; 83690; 85025; 85027

== ENCOUNTER 2017-04-10 12:20 | Emergency (ER) | payer OTHER ==
[2017-04-10 12:58] VITALS: RESP 18
[2017-04-10 15:59] VITALS: TEMP 98.2
[2017-04-10] MEDS ORDERED: METOCLOPRAMIDE 5 MG/ML 2 ML VIAL IVP STA (16:19)
[2017-04-10] MEDS ORDERED: SODIUM CHLORIDE 0.9% 500 ML IV STA (16:19)
[2017-04-10] MEDS ORDERED: PANTOPRAZOLE 40 MG/10 ML VIAL IVP STA (16:19)
[2017-04-10] MEDS ORDERED: HYDROmorphone 1 MG/ML 1 ML SYRINGE IVP STA (16:19)
[2017-04-10] MEDS ORDERED: SODIUM CHLORIDE 0.9% 1,000 ML IV STA (16:19)
--- NOTE | 2017-04-10 16:31 | ED ---
General Adult HPI - General Chief complaint: Abdominal Pain Stated complaint: Abd Pain Time Seen by Provider: 04/10/17 15:27 Source: patient, family, RN notes reviewed, old records reviewed Mode of arrival: ambulatory Limitations: no limitations - History of Present Illness Initial comments: Chief complaint and history of present illness a 41-year-old female here with his significant other. The patient was in hospital up until yesterday. At which time she was asked to leave because she was smoking the bathroom. She was admitted because of nausea vomiting and diarrhea as started some 5 days after having had a cholecystectomy. The patient's liver enzymes are elevated as well as her lipase. She was advised not to drink. She reports she went home yesterday she felt great showered clean the house and then started having nausea vomiting and diarrhea again during the evening. - Related Data Home Medications Medication Instructions Recorded Confirmed FLUoxetine HCL [PROzac] 40 mg PO QAM 07/01/14 04/10/17 OLANZapine [ZyPREXA] 10 mg PO HS 05/05/16 04/10/17 Loperamide [Imodium] 2 mg PO BID PRN 08/09/16 04/10/17 Ondansetron [Zofran] 4 mg PO Q8HR PRN 08/09/16 04/10/17 busPIRone HCL [Buspar] 30 mg PO BID 09/03/16 04/10/17 Albuterol Inhaler [Ventolin Hfa 1 - 2 puff INHALATION RT-Q6H PRN 04/10/17 Inhaler] traZODone HCL 200 mg PO HS 04/10/17 04/10/17 Previous Rx's Medication Instructions Recorded Hydrocodone/Acetaminophen [[place] 1 each PO Q6HR PRN #10 tab 04/10/17 5-325] Ondansetron Odt [Zofran ODT] 4 mg PO Q8HR PRN #10 tab 04/10/17 Prochlorperazine Suppository 25 mg RECTAL BID #5 supp 04/10/17 [Compazine] Allergies Allergy/AdvReac Type Severity Reaction Status Date / Time corn Allergy Nausea & Verified 04/10/17 15:46 Vomiting & Diarrhea grass pollen-perennial rye, Allergy Itching Verified 04/10/17 15:46 standar [grass poll-perennial rye,std] ketorolac tromethamine Allergy Rash/Hives Verified 04/10/17 15:46 [From Toradol] Review of Systems ROS Statement: Those systems with pertinent positive or pertinent negative responses have been documented in the HPI. Review of systems. The patient's denying headache or visual acuity changes she has her epigastric area discomfort that goes through to the back and right upper quadrant discomfort. Nausea vomiting and loose stools. No rashes. No neuro deficits. Denies fever at this time. All systems are reviewed. Past medical problems significant for a GI bleed, pneumonia, colitis, she's had MRSA with the umbilical area did infection and abscess. Which contaminated the bowel per patient and she needed a bowel resection. She also had a , cholecystectomy last week, hysterectomy total, right shoulder replacement. The patient's patient has ALLERGIES to Court, grass pollen perennial riding, stand or ketorolac, tromethamine. The patient smokes, including marijuana, and she does drink alcohol on occasion. ROS Other: All systems not noted in ROS Statement are negative. Past Medical History Past Medical History: GI Bleed, Pneumonia Additional Past Medical History / Comment(s): HX CROHN'S, CHRONIC SHOULDER PAIN ; Cyst under L armpit, cellulitis History of Any Multi-Drug Resistant Organisms: MRSA Date of last positivie culture/infection: 2000 MDRO Source:: abdomen Past Surgical History: Bowel Resection, Section, Cholecystectomy, Hysterectomy, Joint Replacement Additional Past Surgical History / Comment(s): RT SHOULDER REPLACEMENT Past Anesthesia/Blood Transfusion Reactions: Motion Sickness Additional Past Anesthesia/Blood Transfusion Reaction / Comment(s): pt adopted Past Psychological History: ADD/ADHD, Anxiety, Bipolar, Depression, PTSD Smoking Status: Current every day smoker Past Alcohol Use History: Occasional Additional Past Alcohol Use History / Comment(s): smoked for about 20 years 1ppd Past Drug Use History: Marijuana Additional Drug Use History / Comment(s): pt reports occasional current use - Past Family History Mother Family Medical History: Unable to Obtain Additional Family Medical History / Comment(s): pt adopted General Exam - General Exam Comments Initial Comments: General: The patient is awake and alert, he with a complaint of nausea vomiting diarrhea and epigastric pain. No blood in the vomit. No blood in the stool. Eye: Pupils are equal, round and reactive to light, extra-ocular movements are intact ; there is normal conjunctiva bilaterally. No signs of icterus. Ears, nose, mouth and throat: There are moist mucous membranes and no oral lesions. Neck: The neck is supple, there is no tenderness. Cardiovascular: There is a regular rate and rhythm. No murmur, rub or gallop is appreciated. Respiratory: Lungs are clear to auscultation, respirations are non-labored, breath sounds are equal. No wheezes, stridor, rales, or rhonchi. Gastrointestinal: Abdomen is tender epigastric region to the right upper quadrant. Palpable liver edge. Active bowel sounds. The radiates through to the back. Back: Epigastric pain radiates through to the back. Musculoskeletal: Normal ROM, no tenderness, There is no pedal edema. There is no calf tenderness or swelling. Sensation intact. Neurological: No evidence of any focal or lateralizing findings, neuro intact. Skin: Skin is warm and dry and no rashes or lesions are noted. Psychiatric: History of bipolar disorder Limitations: no limitations Course Vital Signs 04/10/17 04/10/17 12:56 15:58 Temperature 98.3 F 98.2 F Pulse Rate 96 70 Respiratory 18 18 Rate Blood Pressure 124/78 121/67 O2 Sat by Pulse 96 Oximetry Medical Decision Making - Medical Decision Making Medical decision making; patient's white count 5 hemoglobin 13.6 hematocrit of 40, potassium 4.1 with a BUN of 4 creatinine 0.7 and GFR greater than 60. Glucose 90. ALT 64. Amylase lipase within normal limits. X-ray of the abdomen was done and reviewed by radiologist his final impression is calcifications within the pelvis. Correlate for ureteral stones versus phleboliths. #2 nonspecific abdomen. As read by Dr. Falcon Patient is feeling better and the labs today compared to those just 2 days ago or significantly better. Only the ALT slightly elevated at 64. Otherwise amylase lipase normal, white count normal. The patient will be discharged home she is requesting a little more morphine before she goes. The patient be placed on analgesics, as well as Pepto-Bismol and Zofran . If she continues to vomit on Zofran prescription for Compazine was also provided. Patient is advised follow-up with family physician. Strongly advised not to drink any alcohol. - Lab Data Result diagrams: 04/10/17 17:15 04/10/17 17:15 Lab Results 0504/10/17 04/10/17 Range/Units 17:15 17:15 17:15 WBC 5.0 (3.8-10.6) k/uL RBC 4.09 (3.80-5.40) m/uL Hgb 13.6 (11.4-16.0) gm/dL Hct 40.3 (34.0-46.0) % MCV 98.4 (80.0-100.0) fL MCH 33.3 (25.0-35.0) pg MCHC 33.9 (31.0-37.0) g/dL RDW 13.8 (11.5-15.5) % Plt Count 194 (150-450) k/uL Neutrophils % 61 % Lymphocytes % 25 % Monocytes % 7 % Eosinophils % 5 % Basophils % 1 % Neutrophils # 3.0 (1.3-7.7) k/uL Lymphocytes # 1.2 (1.0-4.8) k/uL Monocytes # 0.4 (0-1.0) k/uL Eosinophils # 0.2 (0-0.7) k/uL Basophils # 0.0 (0-0.2) k/uL Sodium 141 (137-145) mmol/L Potassium 4.1 (3.5-5.1) mmol/L Chloride 108 H (98-107) mmol/L Carbon Dioxide 23 (22-30) mmol/L Anion Gap 10 mmol/L BUN 4 L (7-17) mg/dL Creatinine 0.70 (0.52-1.04) mg/dL Est GFR (MDRD) Af Amer >60 (>60 ml/min/1.73 sqM) Est GFR (MDRD) Non-Af >60 (>60 ml/min/1.73 sqM) Glucose 90 (74-99) mg/dL Plasma Lactic Acid Dion 0.8 (0.7-2.0) mmol/L Calcium 9.1 (8.4-10.2) mg/dL Total Bilirubin 0.8 (0.2-1.3) mg/dL AST 27 (14-36) U/L ALT 64 H (9-52) U/L Alkaline Phosphatase 123 (38-126) U/L Total Protein 6.9 (6.3-8.2) g/dL Albumin 4.3 (3.5-5.0) g/dL Amylase 40 (30-110) U/L Lipase 137 (23-300) U/L Urine Color Urine Appearance (Clear) Urine pH (5.0-8.0) Ur Specific [place] (1.001-1.035) Urine Protein (Negative) Urine Glucose (UA) (Negative) Urine Ketones (Negative) Urine Blood (Negative) Urine Nitrite (Negative) Urine Bilirubin (Negative) Urine Urobilinogen (<2.0) mg/dL Ur Leukocyte Esterase (Negative) Urine RBC (0-5) /hpf Urine WBC (0-5) /hpf Ur Squamous Epith Cells (0-4) /hpf Amorphous Sediment (None) /hpf Urine Bacteria (None) /hpf 04/10/17 Range/Units 17:15 WBC (3.8-10.6) k/uL RBC (3.80-5.40) m/uL Hgb (11.4-16.0) gm/dL Hct (34.0-46.0) % MCV (80.0-100.0) fL MCH (25.0-35.0) pg MCHC (31.0-37.0) g/dL RDW (11.5-15.5) % Plt Count (150-450) k/uL Neutrophils % % Lymphocytes % % Monocytes % % Eosinophils % % Basophils % % Neutrophils # (1.3-7.7) k/uL Lymphocytes # (1.0-4.8) k/uL Monocytes # (0-1.0) k/uL Eosinophils # (0-0.7) k/uL Basophils # (0-0.2) k/uL Sodium (137-145) mmol/L Potassium (3.5-5.1) mmol/L Chloride (98-107) mmol/L Carbon Dioxide (22-30) mmol/L Anion Gap mmol/L BUN (7-17) mg/dL Creatinine (0.52-1.04) mg/dL Est GFR (MDRD) Af Amer (>60 ml/min/1.73 sqM) Est GFR (MDRD) Non-Af (>60 ml/min/1.73 sqM) Glucose (74-99) mg/dL Plasma Lactic Acid Dion (0.7-2.0) mmol/L Calcium (8.4-10.2) mg/dL Total Bilirubin (0.2-1.3) mg/dL AST (14-36) U/L ALT (9-52) U/L Alkaline Phosphatase (38-126) U/L Total Protein (6.3-8.2) g/dL Albumin (3.5-5.0) g/dL Amylase (30-110) U/L Lipase (23-300) U/L Urine Color Light Yellow Urine Appearance Cloudy H (Clear) Urine pH 5.5 (5.0-8.0) Ur Specific [place] 1.005 (1.001-1.035) Urine Protein Negative (Negative) Urine Glucose (UA) Negative (Negative) Urine Ketones Negative (Negative) Urine Blood Negative (Negative) Urine Nitrite Negative (Negative) Urine Bilirubin Negative (Negative) Urine Urobilinogen <2.0 (<2.0) mg/dL Ur Leukocyte Esterase Negative (Negative) Urine RBC 1 (0-5) /hpf Urine WBC 2 (0-5) /hpf Ur Squamous Epith Cells 4 (0-4) /hpf Amorphous Sediment Rare H (None) /hpf Urine Bacteria Occasional H (None) /hpf Disposition Clinical Impression: Nausea vomiting and diarrhea Disposition: HOME SELF-CARE Condition: Fair Instructions: Acute Nausea and Vomiting (ED) Additional Instructions: Use Zofran for nausea if not effective use Compazine suppository. His medications as directed for discomfort. Use Pepto-Bismol. No alcohol. Follow- up with family physician. Prescriptions: Hydrocodone/Acetaminophen [[place] 5-325] 1 each PO Q6HR PRN #10 tab PRN Reason: Pain Ondansetron Odt [Zofran ODT] 4 mg PO Q8HR PRN #10 tab PRN Reason: Nausea Prochlorperazine Suppository [Compazine] 25 mg RECTAL BID #5 supp Referrals: Louann Carlos MD [Primary Care Provider] - 1-2 days
[2017-04-10 17:34] LABS: Basophils % (A) 1 %; CHCM 34.7; Eosinophils # (A) 0.2 k/uL (0-0.7); Eosinophils % (A) 5 %; HCT 40.3 % (34.0-46.0); HGB 13.6 gm/dL (11.4-16.0); Luc # (Auto) 0.08; Luc % (Auto) 2; Lymphocytes # (A) 1.2 k/uL (1.0-4.8); Lymphocytes % (A) 25 %; MCH 33.3 pg (25.0-35.0); MCHC 33.9 g/dL (31.0-37.0); MCV 98.4 fL (80.0-100.0); Mean Platelet Volume 7.5; Monocytes # (A) 0.4 k/uL (0-1.0); Monocytes % (A) 7 %; Neutrophils % (A) 61 %; RBC 4.09 m/uL (3.80-5.40); RDW 13.8 % (11.5-15.5); WBC (Perox) 4.98
[2017-04-10 17:45] LABS: Amorphous Sediment,Urine Rare /hpf; Appearance,Urine Cloudy (Clear); Bacteria,Urine Occasional /hpf; Bilirubin,Urine Negative (Negative); Glucose,Urine (UA) Negative (Negative); Ketones,Urine Negative (Negative); Leukocyte Esterase,Urine Negative (Negative); Nitrite,Urine Negative (Negative); PH, Urine 5.5 (5.0-8.0); Particle Count 5269; Protein,Urine Negative (Negative); RBC,Urine 1 /hpf (0-5); Specific Gravity,Urine 1.005 (1.001-1.035); Squamous Epithelial Cell,Urine 4 /hpf (0-4); UA Billing (MACRO vs. MICRO) MICRO; Urobilinogen,Urine <2.0 mg/dL (<2.0); WBC,Urine 2 /hpf (0-5)
--- NOTE | 2017-04-10 17:47 | XR ---
EXAMINATION TYPE: XR abdomen 2V DATE OF EXAM: 04/10/2017 5:41 PM COMPARISON: NONE INDICATION: Epigastric pain TECHNIQUE: Single view abdomen upright view FINDINGS: There is a normal bowel gas pattern. Psoas margins are normal. No organomegaly is present. No free air is evident. No suspicious differential air-fluid levels are evident. There are couple of calcifications within the pelvis. Distal ureteral stones or phleboliths could be considered IMPRESSION: 1. Calcifications within the pelvis. Correlate for ureteral stones versus phleboliths. 2. Nonspecific abdomen
[2017-04-10 17:50] LABS: ALT 64 U/L (9-52); AST 27 U/L (14-36); Alkaline Phosphatase 123 U/L (38-126); Amylase 40 U/L (30-110); Anion Gap 10 mmol/L; Blood Urea Nitrogen 4 mg/dL (7-17); Calcium 9.1 mg/dL (8.4-10.2); Carbon Dioxide 23 mmol/L (22-30); Chloride 108 mmol/L (98-107); Glucose 90 mg/dL (74-99); Non-African American GFR(MDRD) >60 (>60 ml/min/1.73 sqM); Potassium 4.1 mmol/L (3.5-5.1); Sodium 141 mmol/L (137-145); Total Bilirubin 0.8 mg/dL (0.2-1.3); Total Protein 6.9 g/dL (6.3-8.2)
[2017-04-10] MEDS ORDERED: MORPHINE SULFATE 2 MG/ML SYRINGE IVP ONE (18:10)
[2017-04-10 18:44] VITALS: BP 103/64; PULSE 79
== END 2017-04-10 18:59 | disposition home or self-care (01) ==
LOC: EC 12:20
DX: R10.13 Epigastric pain (principal); R10.32 Left lower quadrant pain; R11.2 Nausea with vomiting, unspecified; R19.7 Diarrhea, unspecified; F90.9 Attention-deficit hyperactivity disorder, unspecified type; F31.9 Bipolar disorder, unspecified; F41.9 Anxiety disorder, unspecified; F43.10 Post-traumatic stress disorder, unspecified; F17.200 Nicotine dependence, unspecified, uncomplicated; Z79.899 Other long term (current) drug therapy; Z88.6 Allergy status to analgesic agent; Z91.018 Allergy to other foods; Z91.048 Other nonmedicinal substance allergy status
CPT/HCPCS: 36415; 80053; 82150; 83605; 83690; 85025; 81001; 87086; 74020; 99284; 96374; 96375 ×3; 96361 ×2; J2765; J2270; J1170; C9113

== ENCOUNTER 2017-05-29 14:52 | Inpatient (IN) | payer OTHER ==
[2017-05-29] MEDS ORDERED: NALOXONE 0.4 MG/ML 10 ML VIAL IVP STA (15:14)
[2017-05-29] MEDS ORDERED: ONDANSETRON 4 MG/2 ML VIAL IVP STA (15:32)
[2017-05-29] MEDS ORDERED: SODIUM CHLORIDE 0.9% 1,000 ML IV ONE (16:02)
[2017-05-29] MEDS ORDERED: ACETAMINOPHEN TAB 500 MG TAB PO STA (16:02)
[2017-05-29] MEDS ORDERED: SODIUM CHLORIDE 0.9% 500 ML IV ONE (16:02)
[2017-05-29] MEDS ORDERED: IBUPROFEN 600 MG TAB PO STA (16:02)
--- NOTE | 2017-05-29 16:20 | XR ---
EXAMINATION TYPE: XR chest 2V DATE OF EXAM: 05/29/2017 COMPARISON: 09/26/2013 HISTORY: 41-year-old female with difficulty breathing TECHNIQUE: PA and lateral views FINDINGS: Heart is normal size. Aorta and pulmonary vasculature within normal limits. [place]andy atelectasis in th e lower lungs. No consolidation or pleural effusion. IMPRESSION: No acute cardiopulmonary process.
[2017-05-29 16:22] LABS: Basophils # (A) 0.1 k/uL (0-0.2); Basophils % (A) 1 %; CH 33.1; CHCM 34.2; Eosinophils # (A) 0.6 k/uL (0-0.7); Eosinophils % (A) 5 %; HCT 39.8 % (34.0-46.0); HGB 14.4 gm/dL (11.4-16.0); Luc # (Auto) 0.38; Luc % (Auto) 3; Lymphocytes # (A) 3.2 k/uL (1.0-4.8); Lymphocytes % (A) 27 %; MCH 35.1 pg (25.0-35.0); MCHC 36.1 g/dL (31.0-37.0); MCV 97.1 fL (80.0-100.0); Monocytes # (A) 0.9 k/uL (0-1.0); Monocytes % (A) 8 %; Neutrophils # (A) 6.8 k/uL (1.3-7.7); Neutrophils % (A) 57 %; RDW 13.7 % (11.5-15.5); WBC 11.8 k/uL (3.8-10.6); WBC (Perox) 11.98
--- NOTE | 2017-05-29 16:34 | ED ---
General Adult HPI - General Source: family, RN notes reviewed Mode of arrival: wheelchair Limitations: no limitations <Anibal Corbin - Last Filed: 05/29/17 17:17> <Jeremy Melvin - Last Filed: 05/29/17 18:29> - General Chief complaint: Altered Mental Status Stated complaint: Overdose Time Seen by Provider: 05/29/17 14:52 - History of Present Illness Initial comments: This is a 41-year-old female who presents emergency department after snorting heroin. Patient was becoming obtunded and was brought to the emergency department. Patient was given 2 of Narcan in the emergency department and came back to her baseline. Patient had no other complaints at this time however she did have a fever so she will be worked up for her fever and she was in agreement with this. Patient was vomiting after the Narcan so she was given Zofran. Patient denies any headache patient denies numbness weakness. Patient denies chest pain difficult breathing or shortness of breath. Patient denies any fever or chills that she knows of. Patient denies any cough per patient denies abdominal pain patient denies nausea vomiting or diarrhea. (Anibal Corbin) - Related Data Home Medications Medication Instructions Recorded Confirmed FLUoxetine HCL [PROzac] 40 mg PO QAM 07/01/14 05/29/17 busPIRone HCL [Buspar] 30 mg PO BID 09/03/16 05/29/17 Albuterol Sulfate [Ventolin Hfa] 1 - 2 puff INHALATION RT-Q6H PRN 05/29/1705/29 Beclomethasone Dipropionate [Qvar 1 puff INHALATION RT-BID 05/29/17 05/29/17 40 mcg] Dicyclomine [Bentyl] 20 mg PO QID 05/29/17 05/29/17 Montelukast [Singulair] 10 mg PO DAILY 05/29/17 05/29/17 Omeprazole [PriLOSEC] 20 mg PO AC-BID 05/29/17 05/29/17 Promethazine HCl 12.5 mg PO BID 05/29/17 05/29/17 traMADol HCL [Ultram] 50 mg PO BID PRN 05/29/17 05/29/17 traZODone HCL 150 mg PO HS 05/29/17 05/29/17 Previous Rx's Medication Instructions Recorded Prochlorperazine Suppository 25 mg RECTAL BID #5 supp 04/10/17 [Compazine] Allergies Allergy/AdvReac Type Severity Reaction Status Date / Time corn Allergy Nausea & Verified 04/10/17 15:46 Vomiting & Diarrhea grass pollen-perennial rye, Allergy Itching Verified 04/10/17 15:46 standar [grass poll-perennial rye,std] ketorolac tromethamine Allergy Rash/Hives Verified 04/10/17 15:46 [From Toradol] Review of Systems ROS Other: All systems not noted in ROS Statement are negative. <Anibal Corbin - Last Filed: 05/29/17 17:17> ROS Other: All systems not noted in ROS Statement are negative. <Jeremy Melvin - Last Filed: 05/29/17 18:29> ROS Statement: Those systems with pertinent positive or pertinent negative responses have been documented in the HPI. Past Medical History Past Medical History: GI Bleed, Pneumonia Additional Past Medical History / Comment(s): HX CROHN'S, CHRONIC SHOULDER PAIN ; Cyst under L armpit, cellulitis History of Any Multi-Drug Resistant Organisms: MRSA Date of last positivie culture/infection: 2000 MDRO Source:: abdomen Past Surgical History: Bowel Resection, Section, Cholecystectomy, Hysterectomy, Joint Replacement Additional Past Surgical History / Comment(s): RT SHOULDER REPLACEMENT Past Anesthesia/Blood Transfusion Reactions: Motion Sickness Additional Past Anesthesia/Blood Transfusion Reaction / Comment(s): pt adopted Past Psychological History: ADD/ADHD, Anxiety, Bipolar, Depression, PTSD Smoking Status: Current every day smoker Past Alcohol Use History: Occasional Past Drug Use History: Marijuana - Past Family History Mother Family Medical History: Unable to Obtain Additional Family Medical History / Comment(s): pt adopted <Anibal Corbin - Last Filed: 05/29/17 17:17> General Exam Limitations: no limitations <Anibal Corbin - Last Filed: 05/29/17 17:17> <Jeremy Melvin - Last Filed: 05/29/17 18:29> - General Exam Comments Initial Comments: GENERAL: Patient is well-developed and well-nourished. Patient is nontoxic and well- hydrated and is in mild distress. ENT: Neck is soft and supple. No significant lymphadenopathy is noted. Oropharynx is clear. Moist mucous membranes. Neck has full range of motion without eliciting any pain. EYES: The sclera were anicteric and conjunctiva were pink and moist. Extraocular movements were intact and pupils were equal round and reactive to light. Eyelids were unremarkable. PULMONARY: Unlabored respirations. Good breath sounds bilaterally. No audible rales rhonchi or wheezing was noted. CARDIOVASCULAR: There is a regular rate and rhythm without any murmurs gallops or rubs. ABDOMEN: Soft and nontender with normal bowel sounds. No palpable organomegaly was noted. There is no palpable pulsatile mass. SKIN: Skin is clear with no lesions or rashes and otherwise unremarkable. NEUROLOGIC: Patient is not answering questions and was altered significantly until she was given Narcan in which case she was alert and oriented sensory MUSCULOSKELETAL: Normal extremities with adequate strength and full range of motion. No lower extremity swelling or edema. No calf tenderness. LYMPHATICS: No significant lymphadenopathy is noted PSYCHIATRIC: Normal psychiatric evaluation. Patient denies any suicidal ideations (Anibal Corbin) Medical Decision Making - Lab Data Result diagrams: 05/29/17 16:11 05/29/17 16:11 <Anibal Corbin - Last Filed: 05/29/17 17:17> - Lab Data Result diagrams: 05/29/17 16:11 05/29/17 16:11 - Radiology Data Radiology results: image reviewed (Chest x-ray shows no acute process) <Jeremy Melvin - Last Filed: 05/29/17 18:29> - Medical Decision Making Dr. Melvin be taking over the care of this patient at 5 PM (Anibal Corbin) Patient became drowsy again and did respond well with Narcan. Patient will be placed on Narcan drip. Case discussed with practitioner Lauren kruger, who will admit for Dr. Weinstein, covering for Dr. Borges. Case also discussed with Dr. Deshpande, who will consult. Source of fever is not identifiable at this time. ( Jeremy Melvin) - Lab Data Lab Results 05/29/17 05/29/17 05/29/17 Range/Units 16:11 16:11 16:11 WBC 11.8 H (3.8-10.6) k/uL RBC 4.10 (3.80-5.40) m/uL Hgb 14.4 (11.4-16.0) gm/dL Hct 39.8 (34.0-46.0) % MCV 97.1 (80.0-100.0) fL MCH 35.1 H (25.0-35.0) pg MCHC 36.1 (31.0-37.0) g/dL RDW 13.7 (11.5-15.5) % Plt Count 276 (150-450) k/uL Neutrophils % 57 % Lymphocytes % 27 % Monocytes % 8 % Eosinophils % 5 % Basophils % 1 % Neutrophils # 6.8 (1.3-7.7) k/uL Lymphocytes # 3.2 (1.0-4.8) k/uL Monocytes # 0.9 (0-1.0) k/uL Eosinophils # 0.6 (0-0.7) k/uL Basophils # 0.1 (0-0.2) k/uL Sodium 137 (137-145) mmol/L Potassium 3.8 (3.5-5.1) mmol/L Chloride 98 (98-107) mmol/L Carbon Dioxide 25 (22-30) mmol/L Anion Gap 14 mmol/L BUN 6 L (7-17) mg/dL Creatinine 0.80 (0.52-1.04) mg/dL Est GFR (MDRD) Af Amer >60 (>60 ml/min/1.73 sqM) Est GFR (MDRD) Non-Af >60 (>60 ml/min/1.73 sqM) Glucose 218 H (74-99) mg/dL Plasma Lactic Acid Dion 1.9 (0.7-2.0) mmol/L Calcium 9.0 (8.4-10.2) mg/dL Total Bilirubin 1.0 (0.2-1.3) mg/dL AST 89 H (14-36) U/L ALT 49 (9-52) U/L Alkaline Phosphatase 117 (38-126) U/L Total Protein 7.5 (6.3-8.2) g/dL Albumin 4.7 (3.5-5.0) g/dL Urine Color Urine Appearance (Clear) Urine pH (5.0-8.0) Ur Specific [place] (1.001-1.035) Urine Protein (Negative) Urine Glucose (UA) (Negative) Urine Ketones (Negative) Urine Blood (Negative) Urine Nitrite (Negative) Urine Bilirubin (Negative) Urine Urobilinogen (<2.0) mg/dL Ur Leukocyte Esterase (Negative) Urine RBC (0-5) /hpf Urine WBC (0-5) /hpf Ur Squamous Epith Cells (0-4) /hpf Amorphous Sediment (None) /hpf Urine Bacteria (None) /hpf Hyaline Casts (0-2) /lpf Urine Mucus (None) /hpf Urine Opiates Screen (NotDetected) Ur Oxycodone Screen (NotDetected) Urine Methadone Screen (NotDetected) Ur Propoxyphene Screen (NotDetected) Ur Barbiturates Screen (NotDetected) U Tricyclic Antidepress (NotDetected) Ur Phencyclidine Scrn (NotDetected) Ur Amphetamines Screen (NotDetected) U Methamphetamines Scrn (NotDetected) U Benzodiazepines Scrn (NotDetected) Urine Cocaine Screen (NotDetected) U Marijuana (THC) Screen (NotDetected) 05/29/17 05/29/17 Range/Units 16:27 16:27 WBC (3.8-10.6) k/uL RBC (3.80-5.40) m/uL Hgb (11.4-16.0) gm/dL Hct (34.0-46.0) % MCV (80.0-100.0) fL MCH (25.0-35.0) pg MCHC (31.0-37.0) g/dL RDW (11.5-15.5) % Plt Count (150-450) k/uL Neutrophils % % Lymphocytes % % Monocytes % % Eosinophils % % Basophils % % Neutrophils # (1.3-7.7) k/uL Lymphocytes # (1.0-4.8) k/uL Monocytes # (0-1.0) k/uL Eosinophils # (0-0.7) k/uL Basophils # (0-0.2) k/uL Sodium (137-145) mmol/L Potassium (3.5-5.1) mmol/L Chloride (98-107) mmol/L Carbon Dioxide (22-30) mmol/L Anion Gap mmol/L BUN (7-17) mg/dL Creatinine (0.52-1.04) mg/dL Est GFR (MDRD) Af Amer (>60 ml/min/1.73 sqM) Est GFR (MDRD) Non-Af (>60 ml/min/1.73 sqM) Glucose (74-99) mg/dL Plasma Lactic Acid Dion (0.7-2.0) mmol/L Calcium (8.4-10.2) mg/dL Total Bilirubin (0.2-1.3) mg/dL AST (14-36) U/L ALT (9-52) U/L Alkaline Phosphatase (38-126) U/L Total Protein (6.3-8.2) g/dL Albumin (3.5-5.0) g/dL Urine Color Yellow Urine Appearance Cloudy H (Clear) Urine pH 5.5 (5.0-8.0) Ur Specific [place] 1.017 (1.001-1.035) Urine Protein 1+ H (Negative) Urine Glucose (UA) Negative (Negative) Urine Ketones Trace H (Negative) Urine Blood Negative (Negative) Urine Nitrite Negative (Negative) Urine Bilirubin Negative (Negative) Urine Urobilinogen 2.0 (<2.0) mg/dL Ur Leukocyte Esterase Negative (Negative) Urine RBC 2 (0-5) /hpf Urine WBC 4 (0-5) /hpf Ur Squamous Epith Cells 24 H (0-4) /hpf Amorphous Sediment Rare H (None) /hpf Urine Bacteria Occasional H (None) /hpf Hyaline Casts 25 H (0-2) /lpf Urine Mucus Rare H (None) /hpf Urine Opiates Screen Detected H (NotDetected) Ur Oxycodone Screen Detected H (NotDetected) Urine Methadone Screen Not Detected (NotDetected) Ur Propoxyphene Screen Not Detected (NotDetected) Ur Barbiturates Screen Not Detected (NotDetected) U Tricyclic Antidepress Not Detected (NotDetected) Ur Phencyclidine Scrn Not Detected (NotDetected) Ur Amphetamines Screen Not Detected (NotDetected) U Methamphetamines Scrn Not Detected (NotDetected) U Benzodiazepines Scrn Detected H (NotDetected) Urine Cocaine Screen Detected H (NotDetected) U Marijuana (THC) Screen Detected H (NotDetected) Critical Care Time Critical Care Time: Yes Total Critical Care Time: 32 <Jeremy Melvin - Last Filed: 05/29/17 18:29> Disposition <Anibal Corbin - Last Filed: 05/29/17 17:17> Decision Time: 18:28 <Jeremy Melvin - Last Filed: 05/29/17 18:29> Clinical Impression: Drug overdose Disposition: ADMITTED IP TO THIS [facility] Condition: Serious Referrals: Louann Carlos MD [Primary Care Provider] - 1-2 days
[2017-05-29 16:37] LABS: ALT 49 U/L (9-52); AST 89 U/L (14-36); Alkaline Phosphatase 117 U/L (38-126); Anion Gap 14 mmol/L; Blood Urea Nitrogen 6 mg/dL (7-17); Carbon Dioxide 25 mmol/L (22-30); Chloride 98 mmol/L (98-107); Glucose 218 mg/dL (74-99); Non-African American GFR(MDRD) >60 (>60 ml/min/1.73 sqM); Potassium 3.8 mmol/L (3.5-5.1); Sodium 137 mmol/L (137-145); Total Protein 7.5 g/dL (6.3-8.2)
[2017-05-29 16:47] LABS: Amorphous Sediment,Urine Rare /hpf; Appearance,Urine Cloudy (Clear); Bacteria,Urine Occasional /hpf; Bilirubin,Urine Negative (Negative); Glucose,Urine (UA) Negative (Negative); Ketones,Urine Trace (Negative); Leukocyte Esterase,Urine Negative (Negative); Mucus,Urine Rare /hpf; Nitrite,Urine Negative (Negative); PH, Urine 5.5 (5.0-8.0); Particle Count 17351; Protein,Urine 1+ (Negative); RBC,Urine 2 /hpf (0-5); Specific Gravity,Urine 1.017 (1.001-1.035); Squamous Epithelial Cell,Urine 24 /hpf (0-4); UA Billing (MACRO vs. MICRO) MICRO; WBC,Urine 4 /hpf (0-5)
[2017-05-29] MEDS ORDERED: NALOXONE 0.4 MG/ML 1 ML VIAL IV STA (16:56)
[2017-05-29] MEDS: NALOXONE 4 MG in SODIUM CHLORIDE 0.9% 100 ML IV SCH (18:14)
[2017-05-29] MEDS ORDERED: NALOXONE 0.4 MG/ML 1 ML VIAL IV PRN ×2 (18:29→20:43)
[2017-05-29] MEDS ORDERED: SODIUM CHLORIDE 0.9% 1,000 ML IV SCH (18:30)
[2017-05-29 20:14] LABS: Glucose,Whole Blood 101 mg/dL (75-99)
[2017-05-29] MEDS ORDERED: ACETAMINOPHEN TAB 325 MG TAB PO PRN (20:43)
[2017-05-29] MEDS ORDERED: ONDANSETRON 4 MG/2 ML VIAL IVP PRN (20:49)
[2017-05-29] MEDS ORDERED: IPRATROPIUM-ALBUTEROL 3 ML NEB INHALATION PRN (20:50)
--- NOTE | 2017-05-29 21:12 | P.CNPUL ---
History of Present Illness Consult date: 05/29/17 Requesting physician: Tamia Weinstein Reason for consult: other (Multiple drug overdose) Chief complaint: Altered mental status History of present illness: This is a 41-year-old female with history of Crohn's disease, COPD, heavy smoker , history of GERD, chronic pain syndrome, presented to the ER after she snorted some heroin which was given to her by a friend. Patient developed obtundation, and upon evaluation in the ER, patient responded well to Narcan given on 2 separate occasions. Patient continued to develop obtundation intermittently, hence she was placed on Narcan drip at 0.6 mg per hour, and admitted to the intensive care unit. Her drug screen came back positive for opiates, oxycodone , benzodiazepines, cocaine, and marijuana. Patient admits to polysubstance abuse. At the time of my evaluation in the ICU, patient was already on Narcan drip, awake, responsive, alert and oriented 3, and in no form of respiratory distress. However the patient was still on Narcan drip which will be discontinued in the next 4 hours. Presently, the patient denies any headaches, no blurred vision, no dizziness, no nausea no vomiting no abdominal pain no chest pain she does have history of Crohn's disease which is presently inactive. Denies any dysuria frequency or urgency, no melena, no hematemesis. Denies any cold intolerance, no polyuria, no polydipsia, denies any weight issues. Denies any symptoms of depression. Review of Systems 14 point review of systems were obtained, please refer to pertinent positives and negatives as per HPI. Past Medical History Past Medical History: GI Bleed, Pneumonia Additional Past Medical History / Comment(s): HX CROHN'S, CHRONIC SHOULDER PAIN ; Cyst under L armpit, cellulitis History of Any Multi-Drug Resistant Organisms: MRSA Date of last positivie culture/infection: 2000 MDRO Source:: abdomen Past Surgical History: Bowel Resection, Section, Cholecystectomy, Hysterectomy, Joint Replacement Additional Past Surgical History / Comment(s): RT SHOULDER REPLACEMENT Past Anesthesia/Blood Transfusion Reactions: Motion Sickness Additional Past Anesthesia/Blood Transfusion Reaction / Comment(s): pt adopted Past Psychological History: ADD/ADHD, Anxiety, Bipolar, Depression, PTSD Smoking Status: Current every day smoker Past Alcohol Use History: Occasional Past Drug Use History: Marijuana - Past Family History Mother Family Medical History: Unable to Obtain Additional Family Medical History / Comment(s): pt adopted Medications and Allergies Home Medications Medication Instructions Recorded Confirmed Type FLUoxetine HCL [PROzac] 40 mg PO QAM 07/01/14 05/29/17 History busPIRone HCL [Buspar] 30 mg PO BID 09/03/16 05/29/17 History Albuterol Sulfate [Ventolin Hfa] 1 - 2 puff INHALATION RT-Q6H PRN 05/29/1705/29 History Beclomethasone Dipropionate [Qvar 1 puff INHALATION RT-BID 05/29/17 05/29/17 History 40 mcg] Dicyclomine [Bentyl] 20 mg PO QID 05/29/17 05/29/17 History Montelukast [Singulair] 10 mg PO DAILY 05/29/17 05/29/17 History Omeprazole [PriLOSEC] 20 mg PO AC-BID 05/29/17 05/29/17 History Promethazine HCl 12.5 mg PO BID 05/29/17 05/29/17 History traMADol HCL [Ultram] 50 mg PO BID PRN 05/29/17 05/29/17 History traZODone HCL 150 mg PO HS 05/29/17 05/29/17 History Allergies Allergy/AdvReac Type Severity Reaction Status Date / Time corn Allergy Nausea & Verified 04/10/17 15:46 Vomiting & Diarrhea grass pollen-perennial rye, Allergy Itching Verified 04/10/17 15:46 standar [grass poll-perennial rye,std] ketorolac tromethamine Allergy Rash/Hives Verified 04/10/17 15:46 [From Toradol] Physical Exam Vitals: Vital Signs Temp Pulse Resp BP Pulse Ox 05/29/17 19:54 98.9 F 86 18 116/61 98 05/29/17 19:23 98.9 F 88 16 113/63 97 05/29/17 19:08 94 18 110/58 98 05/29/17 18:53 88 16 111/56 97 05/29/17 18:38 96 18 112/59 96 05/29/17 18:16 91 18 121/68 98 05/29/17 17:55 93 16 130/80 87 L 05/29/17 17:15 98.9 F 103 H 18 111/50 96 05/29/17 16:22 104 H 16 116/64 97 05/29/17 15:23 124 H 16 157/60 96 05/29/17 15:13 126 H 16 158/71 94 L 05/29/17 15:00 8 L 05/29/17 14:56 102.1 F H 131 H 16 149/65 80 L Intake and Output 05/29/17 05/29/17 05/29/17 06:59 14:59 22:59 Other: Weight 77.111 kg Patient Weight 05/30/17 06:59 Weight 77.111 kg Physical Exam: Revealed a 41-year-old female, obese, in no distress. HEENT:[Neck is supple.] [No neck masses.] [No thyromegaly.] [No JVD.] Chest: [Wheezing bilaterally was noted, more so on forced expiratory maneuver.] Cardiac Exam: [Normal S1 and S2, no S3 gallop, no murmur.] Abdomen: [Soft, nontender, no megaly, no rebound, no guarding, normal bowel sounds.] Extremities: [No clubbing, no edema, no cyanosis.] Neurological Exam: [No focal neurologic deficit.] Results - Laboratory Findings CBC and BMP: 05/29/17 16:11 05/29/17 16:11 Abnormal lab findings: Abnormal Labs 05/29/17 05/29/17 05/29/17 16:11 16:11 16:27 WBC 11.8 H MCH 35.1 H BUN 6 L Glucose 218 H POC Glucose (mg/dL) AST 89 H Urine Appearance Cloudy H Urine Protein 1+ H Urine Ketones Trace H Ur Squamous Epith Cells 24 H Amorphous Sediment Rare H Urine Bacteria Occasional H Hyaline Casts 25 H Urine Mucus Rare H Urine Opiates Screen Ur Oxycodone Screen U Benzodiazepines Scrn Urine Cocaine Screen U Marijuana (THC) Screen 05/29/17 05/29/17 16:27 20:12 WBC MCH BUN Glucose POC Glucose (mg/dL) 101 H AST Urine Appearance Urine Protein Urine Ketones Ur Squamous Epith Cells Amorphous Sediment Urine Bacteria Hyaline Casts Urine Mucus Urine Opiates Screen Detected H Ur Oxycodone Screen Detected H U Benzodiazepines Scrn Detected H Urine Cocaine Screen Detected H U Marijuana (THC) Screen Detected H - Diagnostic Findings Chest x-ray: image reviewed (No evidence of active disease noted.) Assessment and Plan Plan: Impression: Acute mental status change and obtundation secondary to multi- substance abuse and overdose, positive drug screen for multiple narcotics and sedatives noted. 2 history of Crohn's disease. 3 suspect COPD with acute exacerbation, no evidence of pneumonia. 4 history of bipolar disorder, depression, PTSD, ADHD. Recommendation: Patient will be kept on Narcan drip, she'll be placed on GI and DVT prophylaxis, we will place on bronchodilators, and possibly transfer out of the ICU to a regular medical floor. We'll continue to follow. Time with Patient: Greater than 30
[2017-05-29] MEDS: IPRATROPIUM-ALBUTEROL 3 ML NEB INHALATION SCH (23:34)
[2017-05-30] MEDS: NALOXONE 4 MG in SODIUM CHLORIDE 0.9% 100 ML IV SCH ×3 (00:26→12:51)
[2017-05-30] MEDS: methylPREDNISolone SOD SUCCI 40 MG/ML 1 ML VIAL IV SCH ×3 (00:47→17:38)
[2017-05-30] MEDS: IPRATROPIUM-ALBUTEROL 3 ML NEB INHALATION SCH ×5 (03:17→19:13)
[2017-05-30 05:35] LABS: Basophils % (A) 1 %; CH 33.9; CHCM 35.1; Eosinophils # (A) 0.1 k/uL (0-0.7); Eosinophils % (A) 1 %; HCT 35.4 % (34.0-46.0); HDW 2.61; HGB 12.5 gm/dL (11.4-16.0); Luc # (Auto) 0.06; Luc % (Auto) 2; Lymphocytes # (A) 0.7 k/uL (1.0-4.8); Lymphocytes % (A) 16 %; MCH 34.2 pg (25.0-35.0); MCHC 35.3 g/dL (31.0-37.0); MCV 96.8 fL (80.0-100.0); Mean Platelet Volume 7.7; Monocytes # (A) 0.2 k/uL (0-1.0); Monocytes % (A) 4 %; Neutrophils # (A) 3.2 k/uL (1.3-7.7); Neutrophils % (A) 76 %; RBC 3.66 m/uL (3.80-5.40); RDW 14.1 % (11.5-15.5); WBC 4.2 k/uL (3.8-10.6); WBC (Perox) 4.24
[2017-05-30 05:43] LABS: Anion Gap 10 mmol/L; Blood Urea Nitrogen 5 mg/dL (7-17); Calcium 8.1 mg/dL (8.4-10.2); Carbon Dioxide 24 mmol/L (22-30); Chloride 102 mmol/L (98-107); Glucose 111 mg/dL (74-99); Magnesium 1.9 mg/dL (1.6-2.3); Non-African American GFR(MDRD) >60 (>60 ml/min/1.73 sqM); Phosphorous 2.3 mg/dL (2.5-4.5); Sodium 136 mmol/L (137-145)
--- NOTE | 2017-05-30 07:20 | XR ---
EXAMINATION TYPE: XR chest 1V DATE OF EXAM: 05/30/2017 COMPARISON: 05/29/2017 HISTORY: 41 year-old female COPD TECHNIQUE: Single frontal view of the chest is obtained. FINDINGS: Heart is normal size. Aorta and pulmonary vasculature are within normal limits. Hazy bibasilar periph eral densities correspond to overlying soft tissue. No consolidation or pleural effusion. Postsurgica l changes at the distal right clavicle with a suture anchor at the greater tuberosity. IMPRESSION: No acute cardiopulmonary process.
[2017-05-30] MEDS ORDERED: PANTOPRAZOLE 40 MG TABLET PO SCH (07:30)
[2017-05-30] MEDS ORDERED: ENOXAPARIN 40 MG/0.4 ML SYRINGE SQ SCH (09:00)
[2017-05-30] MEDS ORDERED: NICOTINE 21MG/24HR PATCH TRANSDERM SCH (09:00)
--- NOTE | 2017-05-30 10:42 | P.PN ---
Subjective Principal diagnosis: Multiple drug overdose This is a 41-year-old female with history of Crohn's disease, COPD, heavy smoker , history of GERD, chronic pain syndrome, presented to the ER after she snorted some heroin which was given to her by a friend. Patient developed obtundation, and upon evaluation in the ER, patient responded well to Narcan given on 2 separate occasions. Patient continued to develop obtundation intermittently, hence she was placed on Narcan drip at 0.6 mg per hour, and admitted to the intensive care unit. Her drug screen came back positive for opiates, oxycodone , benzodiazepines, cocaine, and marijuana. Patient admits to polysubstance abuse. At the time of my evaluation in the ICU, patient was already on Narcan drip, awake, responsive, alert and oriented 3, and in no form of respiratory distress. However the patient was still on Narcan drip which will be discontinued in the next 4 hours. Presently, the patient denies any headaches, no blurred vision, no dizziness, no nausea no vomiting no abdominal pain no chest pain she does have history of Crohn's disease which is presently inactive. Denies any dysuria frequency or urgency, no melena, no hematemesis. Denies any cold intolerance, no polyuria, no polydipsia, denies any weight issues. Denies any symptoms of depression. Patient was reevaluated today on 05/30/2017, seems to be doing much better, relatively asymptomatic, Narcan drip was discontinued last night. Patient denies any specific complaints except for being tired, no headaches no blurred vision no dizziness no nausea no vomiting no abdominal pain no melena no hematemesis. She also denies any suicidal or homicidal thoughts. Labs were reviewed including complete metabolic profile and CBC. Objective - Vital Signs Vital signs: Vital Signs Temp 98.2 F 05/30/17 04:00 Pulse 77 05/30/17 10:39 Resp 23 05/30/17 09:30 BP 107/64 05/30/17 09:30 Pulse Ox 98 05/30/17 09:30 Intake & Output 05/29/17 05/30/17 05/30/17 18:59 06:59 18:59 Intake Total 380.5 40 Output Total 880 Balance -499.5 40 Weight 77 kg 78.1 kg Intake: IV 287.5 40 Naloxone 4 mg In Sodium 67.5 Chloride 0.9% 100 ml @ 0. 6 MG/HR 15 mls/hr IV . Q6H40M [facility] Rx#:[id number] Sodium Chloride 0.9% 1, 220 40 000 ml @ 20 mls/hr IV . Q24H [facility] Rx#:[id number] Intake, IV Titration 93 Amount Naloxone 4 mg In Sodium 93 Chloride 0.9% 100 ml @ 0. 6 MG/HR 15 mls/hr IV . Q6H40M [facility] Rx#:[id number] Output: Urine 880 Other: Voiding Method Bedside Commode Bedside Commode # Voids 0 - Exam Physical Exam: Revealed a 41-year-old female in no distress. HEENT:[Neck is supple.] [No neck masses.] [No thyromegaly.] [No JVD.] Chest: [Clear throughout, no crackles, no rhonchi, no wheezes.] Cardiac Exam: [Normal S1 and S2, no S3 gallop, no murmur.] Abdomen: [Soft, nontender, no megaly, no rebound, no guarding, normal bowel sounds.] Extremities: [No clubbing, no edema, no cyanosis.] Neurological Exam: [No focal neurologic deficit.] - Labs CBC & Chem 7: 05/30/17 04:29 05/30/17 04:29 Labs: Abnormal Lab Results - Last 24 Hours (Table) 05/29/17 05/29/17 05/29/17 Range/Units 16:11 16:11 16:27 WBC 11.8 H (3.8-10.6) k/uL RBC (3.80-5.40) m/uL MCH 35.1 H (25.0-35.0) pg Lymphocytes # (1.0-4.8) k/uL Sodium (137-145) mmol/L BUN 6 L (7-17) mg/dL Glucose 218 H (74-99) mg/dL POC Glucose (mg/dL) (75-99) mg/dL Calcium (8.4-10.2) mg/dL Phosphorus (2.5-4.5) mg/dL AST 89 H (14-36) U/L Urine Appearance Cloudy H (Clear) Urine Protein 1+ H (Negative) Urine Ketones Trace H (Negative) Ur Squamous Epith Cells 24 H (0-4) /hpf Amorphous Sediment Rare H (None) /hpf Urine Bacteria Occasional H (None) /hpf Hyaline Casts 25 H (0-2) /lpf Urine Mucus Rare H (None) /hpf Urine Opiates Screen (NotDetected) Ur Oxycodone Screen (NotDetected) U Benzodiazepines Scrn (NotDetected) Urine Cocaine Screen (NotDetected) U Marijuana (THC) Screen (NotDetected) 05/29/17 05/29/17 05/30/17 Range/Units 16:27 20:12 04:29 WBC (3.8-10.6) k/uL RBC 3.66 L (3.80-5.40) m/uL MCH (25.0-35.0) pg Lymphocytes # 0.7 L (1.0-4.8) k/uL Sodium (137-145) mmol/L BUN (7-17) mg/dL Glucose (74-99) mg/dL POC Glucose (mg/dL) 101 H (75-99) mg/dL Calcium (8.4-10.2) mg/dL Phosphorus (2.5-4.5) mg/dL AST (14-36) U/L Urine Appearance (Clear) Urine Protein (Negative) Urine Ketones (Negative) Ur Squamous Epith Cells (0-4) /hpf Amorphous Sediment (None) /hpf Urine Bacteria (None) /hpf Hyaline Casts (0-2) /lpf Urine Mucus (None) /hpf Urine Opiates Screen Detected H (NotDetected) Ur Oxycodone Screen Detected H (NotDetected) U Benzodiazepines Scrn Detected H (NotDetected) Urine Cocaine Screen Detected H (NotDetected) U Marijuana (THC) Screen Detected H (NotDetected) 05/30/17 Range/Units 04:29 WBC (3.8-10.6) k/uL RBC (3.80-5.40) m/uL MCH (25.0-35.0) pg Lymphocytes # (1.0-4.8) k/uL Sodium 136 L (137-145) mmol/L BUN 5 L (7-17) mg/dL Glucose 111 H (74-99) mg/dL POC Glucose (mg/dL) (75-99) mg/dL Calcium 8.1 L (8.4-10.2) mg/dL Phosphorus 2.3 L (2.5-4.5) mg/dL AST (14-36) U/L Urine Appearance (Clear) Urine Protein (Negative) Urine Ketones (Negative) Ur Squamous Epith Cells (0-4) /hpf Amorphous Sediment (None) /hpf Urine Bacteria (None) /hpf Hyaline Casts (0-2) /lpf Urine Mucus (None) /hpf Urine Opiates Screen (NotDetected) Ur Oxycodone Screen (NotDetected) U Benzodiazepines Scrn (NotDetected) Urine Cocaine Screen (NotDetected) U Marijuana (THC) Screen (NotDetected) Assessment and Plan Plan: Impression: Acute mental status change and obtundation secondary to multi- substance abuse and overdose, positive drug screen for multiple narcotics and sedatives noted. 2 history of Crohn's disease. 3 suspect COPD with acute exacerbation, no evidence of pneumonia. 4 history of bipolar disorder, depression, PTSD, ADHD. Recommendation: Patient is presently off Narcan, she could be considered for possible transfer to a regular medical floor and possible discharge planning in the next 24 hours. Time with Patient: Less than 30
[2017-05-30 10:52] VITALS: BMI 29.5
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
[2017-05-30 11:57] LABS: Glucose,Whole Blood 151 mg/dL (75-99)
[2017-05-30] MEDS: INSULIN LISPRO (humaLOG) 300 UNIT/3 ML VIAL SQ SCH ×2 (12:42→17:48)
--- NOTE | 2017-05-30 13:52 | ECHOF ---
Referral Reason:Fever MEASUREMENTS -------- HEIGHT: 162.6 cm WEIGHT: 78.0 kg BP: 109/65 RVIDd: 2.8 cm (< 3.3) IVSd: 0.8 cm (0.6 - 1.1) LVIDd: 4.4 cm (3.9 - 5.3) LVPWd: 0.8 cm (0.6 - 1.1) IVSs: 1.4 cm LVIDs: 2.5 cm LVPWs: 1.4 cm LA Diam: 3.3 cm (2.7 - 3.8) LAESV Index (A-L): 19.18 ml/m Ao Diam: 2.9 cm (2.0 - 3.7) AV Cusp: 2.0 cm (1.5 - 2.6) MV EXCURSION: 17.007 mm (> 18.000) MV EF SLOPE: 147 mm/s (70 - 150) EPSS: 0.1 cm MV E Dilan: 1.20 m/s MV DecT: 248 ms MV A Dilan: 0.74 m/s MV E/A Ratio: 1.63 RAP: 5.00 mmHg RVSP: 20.86 mmHg FINDINGS -------- Sinus rhythm. This was a technically good study. The left ventricular size is normal. Left ventricular wall thickness is normal. Overall left ventricular systolic function is normal with, an EF between 55 - 60 %. The right ventricle is normal in size and function. Normal LA size by volume 22+/-6 ml/m2. The right atrium is normal in size. The aortic valve is trileaflet and appears structurally normal. The mitral valve is normal. There is trace mitral regurgitation. Mild tricuspid regurgitation present. Right ventricular systolic pressure is normal at < 35 mmHg. The pulmonic valve was not well visualized. There is no pulmonic regurgitation present. The aortic root size is normal. The inferior vena cava is mildly dilated. There is no pericardial effusion. CONCLUSIONS -------- 1. Sinus rhythm. 2. The pulmonic valve was not well visualized. 3. There is no pulmonic regurgitation present. 4. The aortic root size is normal. 5. The inferior vena cava is mildly dilated. 6. There is no pericardial effusion. 7. This was a technically good study. 8. The left ventricular size is normal. 9. Overall left ventricular systolic function is normal with, an EF between 55 - 60 %. 10. Normal LA size by volume 22+/-6 ml/m2. 11. The aortic valve is trileaflet and appears structurally normal. 12. There is trace mitral regurgitation. 13. Mild tricuspid regurgitation present. 14. Right ventricular systolic pressure is normal at < 35 mmHg. NUMERICAL CONTROL TOOL PROGRAMMER: Latha Saldana RDCS
[2017-05-30 15:23] VITALS: BP 111/73; RESP 18; TEMP 98
[2017-05-30 15:28] VITALS: PULSE 78
[2017-05-30 17:46] LABS: Glucose,Whole Blood 168 mg/dL (75-99)
--- NOTE | 2017-05-31 13:30 | CONS ---
DATE OF ADMISSION: 05/29/17 REASON FOR ADMISSION/CHIEF COMPLAINTS: Change in mental status and overdose. HISTORY OF PRESENT ILLNESS: This 41 year old with past medical history of multiple medical problems including GI bleeding, pneumonia, history of Crohn's disease, history of MRSA being followed by Dr. Carlos in the outpatient setting was apparently snorting heroin and cocaine. The patient was brought to the emergency room. The patient had multiple doses of Narcan 2 mg. Subsequently , the patient ( ) went up to 0.6. Sensorium slightly improved. The patient is still drowsy, able to give sketchy history at this time. The patient given Zofran for nausea and vomiting. The patient admitted for further evaluation and treatment. There is no history of fever, rigors or chills. No history of headache, loss of consciousness or seizures at this time. PAST MEDICAL HISTORY: History of pneumonia, history of GI bleed, history of MRSA, bowel resection, ADD, ADHD, anxiety, bipolar. Medications prior to admission include home medications are: 1. Omeprazole 20 mg a.c. b.i.d. 2. Q-Philomena 40 mg b.i.d. 3. Ventolin HFA one to two puffs q6h prn. 4. Promethazine 12.5 mg b.i.d. 5. Singulair 10 mg po daily. 6. Trazodone 50 mg q.h.s. 7. Bentyl 20 mg qid. 8. Ultram 50 mg. 9. BuSpar 30 mg. 10. Prozac 40 mg. 11. Compazine 25 mg. ALLERGIES: GRASS, POLLEN, KETOROLAC. FAMILY HISTORY: The patient is adopted. SOCIAL HISTORY: History of alcohol, cocaine, marijuana, heroin and smoking. REVIEW OF SYSTEMS: ENT: No diminished vision. No diminished hearing. CARDIOVASCULAR: No angina or palpitations. RESPIRATORY: No cough or hemoptysis. GI: No nausea or vomiting. : No dysuria. NERVOUS SYSTEM: As mentioned earlier. ALLERGY/IMMUNOLOGY: No asthma or hayfever. MUSCULOSKELETAL: As mentioned earlier. HEMATOLOGY/ONCOLOGY: No anemia. ENDOCRINE: No history of diabetes or hypothyroidism. CONSTITUTIONAL: as mentioned earlier. DERMATOLOGY: Negative. RHEUMATOLOGY: Negative. PSYCHIATRY: As mentioned earlier. PHYSICAL EXAMINATION: The patient is alert and oriented times two. Pulse 80. Blood pressure 140/81. Respirations 18. Temperature normal. Pulse ox 98% on 2 L. HEENT: Conjunctivae normal. Oral mucosa moist. NECK: No JVD. No carotid bruit. No lymph node enlargement. CARDIOVASCULAR: S1, S2 muffled. RESPIRATORY: Breath sounds diminished at the bases. A few rhonchi. No crackles. ABDOMEN: Soft, nontender. No mass palpable. LEGS: No edema. No swelling. NERVOUS SYSTEM: Higher functions as mentioned earlier. Moves all four limbs. No focal motor or sensory deficits. LYMPHATICS: No lymph nodes palpable in then neck, axilla or groin. SKIN: No ulcer, rash or bleeding. LABS: T-max 102.1. Labs are WBC 11.8. Glucose 218. UA noted. ASSESSMENT: 1. Change in mental status, metabolic encephalopathy, secondary to drug overdosage. 2. Positive heroin, cocaine, polysubstance abuse including THC. 3. History of nicotine dependence. 4. Increased WBC. 5. History of gastrointestinal bleed. 6. History of pneumonia. 7. History of Crohn's disease. 8. History of MRSA. 9. History of bowel resection. 10. History of attention deficit disorder/attention deficit hyperactivity disorder. 11. Anxiety, bipolar depression, post traumatic stress disorder. RECOMMENDATIONS AND DISCUSSION: In this 41 year old woman who presented with multiple complex medical issues, we will monitor the patient closely, continue the current medications, continue Narcan drip, which may be titrated off once the patient's sensorium improves, monitor in the ICU. Consult with Dr. Deshpande. Psych consultation. Otherwise, also recommended inpatient rehab and forensic social worker will also be consulted. The patient had fever on admission, etiology undetermined etiology. We will continue to monitor. Chest x-ray on admission showed no acute . Prognosis guarded. Recommend the patient follow up with Dr. Carlos closely in the outpatient setting. IRINA
--- NOTE | 2017-06-01 10:36 | PN ---
DATE OF SERVICE: 05/30/2017 This 41-year-old woman who was admitted with poorly substance abuse and overdose is being closely monitored. Sensorium is improved. The patient was on Narcan drip. No chest pain or palpitation. No fever. On exam, alert and oriented x3. Pulse 108, blood pressure 107/64, respirations 20, temperature normal, pulse ox 98% on room air. HEENT: Conjunctivae normal. NECK: No jugular venous pressure. CARDIOVASCULAR: S1 and S2 muffled. RESPIRATORY: Breath sounds diminished at the bases. No rhonchi, no crackles. ABDOMEN: Soft, nontender. LEGS: No edema, no swelling. NERVOUS SYSTEM: No focal deficits. Labs are WBC 4.2, hemoglobin 12.5. Sodium is 136. ASSESSMENT: 1. Change in mental status, metabolic encephalopathy, status post overdose. 2. History of polysubstance abuse. 3. History of gastrointestinal bleed. 4. History of pneumonia. 5. History of Crohn disease. RECOMMENDATIONS AND DISCUSSION: In this 41-year-old woman who presented with multiple complex medical issues, will monitor the patient closely. Continue the current medications. Continue with symptomatic treatment. Otherwise, at this time I would recommend Social Service and rn case manager evaluation for possible outpatient rehab. Continue the rest of the medications. Repeat labs. Prognosis guarded. Further recommendations discussed with the patient and family. IRINA
== END 2017-05-30 19:18 | disposition left against medical advice (07) | DRG 917 ==
LOC: EC 14:52 → 6ICU 18:29 → 5MS5E 05-30 11:06
PROVIDERS: ADMIT Hospitalist; ATTEND Hospitalist
DX: T40.1X1A Poisoning by heroin, accidental (unintentional), initial encounter (principal); G93.41 Metabolic encephalopathy; F11.20 Opioid dependence, uncomplicated; K50.90 Crohn's disease, unspecified, without complications; J44.1 Chronic obstructive pulmonary disease with (acute) exacerbation; F14.10 Cocaine abuse, uncomplicated; F12.10 Cannabis abuse, uncomplicated; K21.9 Gastro-esophageal reflux disease without esophagitis; G89.4 Chronic pain syndrome; F31.9 Bipolar disorder, unspecified; F43.10 Post-traumatic stress disorder, unspecified; F17.200 Nicotine dependence, unspecified, uncomplicated; F90.9 Attention-deficit hyperactivity disorder, unspecified type; Z87.01 Personal history of pneumonia (recurrent); Z86.14 Personal history of Methicillin resistant Staphylococcus aureus infection; Z96.611 Presence of right artificial shoulder joint; Z90.49 Acquired absence of other specified parts of digestive tract; Z79.899 Other long term (current) drug therapy; Z88.8 Allergy status to other drugs, medicaments and biological substances; Z91.018 Allergy to other foods; Z91.048 Other nonmedicinal substance allergy status
CPT/HCPCS: 36415; 71010; 71020; 80048; 80053; 80306; 81001; 83036; 83605; 83735; 84100; 85025; 87040; 93306; 94640; 96361; 96365; 96366; 96375; 96376; 99291

== ENCOUNTER 2017-09-06 11:43 | Emergency (ER) | payer OTHER ==
[2017-09-06] MEDS ORDERED: SODIUM CHLORIDE 0.9% 500 ML IV STA (12:42)
[2017-09-06 13:08] LABS: Basophils % (A) 1 %; CHCM 34.4; Eosinophils # (A) 0.2 k/uL (0-0.7); Eosinophils % (A) 5 %; HCT 37.4 % (34.0-46.0); HDW 2.91; HGB 12.7 gm/dL (11.4-16.0); Luc # (Auto) 0.17; Luc % (Auto) 3; Lymphocytes # (A) 1.1 k/uL (1.0-4.8); Lymphocytes % (A) 21 %; MCH 33.8 pg (25.0-35.0); MCV 99.3 fL (80.0-100.0); Mean Platelet Volume 7.7; Monocytes # (A) 0.4 k/uL (0-1.0); Monocytes % (A) 8 %; Neutrophils # (A) 3.2 k/uL (1.3-7.7); Neutrophils % (A) 62 %; RBC 3.76 m/uL (3.80-5.40); RDW 14.4 % (11.5-15.5); WBC 5.1 k/uL (3.8-10.6); WBC (Perox) 5.06
[2017-09-06 13:13] LABS: Appearance,Urine Cloudy (Clear); Bacteria,Urine Moderate /hpf; Bilirubin,Urine Negative (Negative); Glucose,Urine (UA) Negative (Negative); Ketones,Urine Negative (Negative); Leukocyte Esterase,Urine Negative (Negative); Nitrite,Urine Negative (Negative); Particle Count 16993; Protein,Urine Trace (Negative); RBC,Urine 1 /hpf (0-5); Specific Gravity,Urine 1.013 (1.001-1.035); Squamous Epithelial Cell,Urine 43 /hpf (0-4); UA Billing (MACRO vs. MICRO) MICRO; WBC,Urine 6 /hpf (0-5)
[2017-09-06 13:15] LABS: ALT 49 U/L (9-52); AST 37 U/L (14-36); Alkaline Phosphatase 99 U/L (38-126); Anion Gap 7 mmol/L; Blood Urea Nitrogen 5 mg/dL (7-17); Calcium 8.9 mg/dL (8.4-10.2); Carbon Dioxide 28 mmol/L (22-30); Chloride 104 mmol/L (98-107); Glucose 112 mg/dL (74-99); Non-African American GFR(MDRD) >60 (>60 ml/min/1.73 sqM); Potassium 3.9 mmol/L (3.5-5.1); Sodium 139 mmol/L (137-145); Total Bilirubin 0.3 mg/dL (0.2-1.3); Total Protein 6.7 g/dL (6.3-8.2)
--- NOTE | 2017-09-06 13:41 | XR ---
EXAMINATION TYPE: XR chest 2V DATE OF EXAM: 09/06/2017 HISTORY: Productive cough. REFERENCE: Previous study dated 05/30/2017. FINDINGS: The lungs remain clear. Pleural space are clear. The heart is not enlarged. IMPRESSION: NORMAL CHEST.
--- NOTE | 2017-09-06 13:49 | ED ---
General Adult HPI - General Chief complaint: Upper Respiratory Infection Stated complaint: flu like symptoms Time Seen by Provider: 09/06/17 12:32 Source: patient, family, RN notes reviewed, old records reviewed Mode of arrival: ambulatory Limitations: no limitations - History of Present Illness Initial comments: Chief complaint history of present illness this is a 42-year-old female here with a complaint of upper respiratory tract infection symptoms for 4 days. Patient reports had a fever at home took Tylenol. Complains of chest discomfort from frequent coughing. - Related Data Home Medications Medication Instructions Recorded Confirmed FLUoxetine HCL [PROzac] 40 mg PO QAM 07/01/14 09/06/17 busPIRone HCL [Buspar] 30 mg PO BID 09/03/16 09/06/17 Albuterol Sulfate [Ventolin Hfa] 1 - 2 puff INHALATION RT-Q6H PRN 05/29/1709/06 Beclomethasone Dipropionate [Qvar 1 puff INHALATION RT-BID 05/29/17 09/06/17 40 mcg] Dicyclomine [Bentyl] 20 mg PO QID 05/29/17 09/06/17 Omeprazole [PriLOSEC] 20 mg PO AC-BID 05/29/17 09/06/17 traZODone HCL 150 mg PO HS 05/29/17 09/06/17 Atorvastatin Calcium [Lipitor] 10 mg PO DAILY 09/06/17 09/06/17 Benzonatate [Tessalon Perles] 200 mg PO TID PRN 09/06/17 09/06/17 Ergocalciferol (Vitamin D2) 50,000 unit PO Q7D 09/06/17 09/06/17 [Vitamin D2] Fenofibrate Nanocrystallized 145 mg PO DAILY 09/06/17 09/06/17 [Tricor] Gabapentin [Neurontin] 300 mg PO TID 09/06/17 09/06/17 Haloperidol [Haldol] 5 mg PO DAILY 09/06/17 09/06/17 Ibuprofen [Motrin] 800 mg PO TID PRN 09/06/17 09/06/17 Loratadine 10 mg PO DAILY 09/06/17 09/06/17 Ondansetron HCl [Zofran] 4 mg PO DAILY PRN 09/06/17 09/06/17 Ondansetron Odt [Zofran Odt] 4 mg PO Q8H PRN 09/06/17 09/06/17 traMADol HCL [Ultram] 50 mg PO BID PRN 09/06/17 09/06/17 Previous Rx's Medication Instructions Recorded Amoxicillin 500 mg PO Q8H 10 Days 09/06/17 Allergies Allergy/AdvReac Type Severity Reaction Status Date / Time carbamazepine [From Tegretol] Allergy Itching Verified 09/06/17 13:34 corn Allergy Nausea & Verified 09/06/17 13:34 Vomiting & Diarrhea grass pollen-perennial rye, Allergy Itching Verified 09/06/17 13:34 standar [grass poll-perennial rye,std] ketorolac tromethamine Allergy Rash/Hives Verified 09/06/17 13:34 [From Toradol] promethazine [From Phenergan] Allergy Itching Verified 09/06/17 13:34 Review of Systems ROS Statement: Those systems with pertinent positive or pertinent negative responses have been documented in the HPI. Review of systems no complaint of visual acuity changes or headache. She does have red throat and complains of a sore throat. No meningismus. She has chest wall pain from frequent coughing. Sounds productive. Sometimes she coughs hard enough to cause nausea vomiting. No change in bowel habits. All systems are reviewed. Past medical problems significant for GI bleed and Crohn's over 6 years ago. History of pneumonia. Past surgeries include a bowel resection, , gallbladder removed, hysterectomy, total right shoulder joint replacement. The patient was also admitted on previous occasion for heroin overdose. The patient 's smoker and alcohol user strongly encouraged to stop smoking. Family history noncontributory area patient reports ALLERGIES to:, Grass pollen Alcantar, Toradol and standar ROS Other: All systems not noted in ROS Statement are negative. Past Medical History Past Medical History: GI Bleed, Pneumonia Additional Past Medical History / Comment(s): HX CROHN'S, CHRONIC SHOULDER PAIN ; Cyst under L armpit, cellulitis History of Any Multi-Drug Resistant Organisms: MRSA Date of last positivie culture/infection: 2000 MDRO Source:: abdomen Past Surgical History: Bowel Resection, Section, Cholecystectomy, Hysterectomy, Joint Replacement Additional Past Surgical History / Comment(s): RT SHOULDER REPLACEMENT Past Anesthesia/Blood Transfusion Reactions: Motion Sickness Additional Past Anesthesia/Blood Transfusion Reaction / Comment(s): pt adopted Past Psychological History: ADD/ADHD, Anxiety, Bipolar, Depression, PTSD Smoking Status: Current every day smoker Past Alcohol Use History: Occasional Past Drug Use History: Marijuana - Past Family History Mother Family Medical History: Unable to Obtain Additional Family Medical History / Comment(s): pt adopted General Exam - General Exam Comments Initial Comments: General: The patient is awake and alert, patient presents with a productive sounding cough and hoarse voice ongoing for 4 days. Vital signs temp 97.4 pulse 88 respiratory rate 18 pulse ox 90% room air blood pressure 128/88 Eye: Pupils are equal, pupils are equal but small, extra-ocular movements are intact ; there is normal conjunctiva bilaterally. No signs of icterus. Ears, nose, mouth and throat: Beefy red tonsils mild exudate. Neck: Positive anterior cervical lymphadenopathy. No evidence of complaints of meningeal irritation or stiff neck. Cardiovascular: There is a regular rate and rhythm. No murmur, rub or gallop is appreciated. Respiratory: Raspy sounding breath sounds may be referred from the throat area. Equal breath sounds bilaterally. Gastrointestinal: Soft, non-distended, non-tender abdomen without masses or organomegaly noted. There is no rebound or guarding present. No CVA tenderness. Bowel sounds are unremarkable. Back: There is no tenderness to palpation in the midline. There is no obvious deformity. No rashes noted. Musculoskeletal: Normal ROM, no tenderness, There is no pedal edema. There is no calf tenderness or swelling. Sensation intact. Pulses equal bilaterally 2+. Neurological: No neuro deficits Skin: Skin is warm and dry and no rashes or lesions are noted. Limitations: no limitations Course Vital Signs 09/06/17 12:08 Temperature 97.4 F L Pulse Rate 88 Respiratory 18 Rate Blood Pressure 128/88 O2 Sat by Pulse 93 L Oximetry Medical Decision Making - Medical Decision Making Medical decision making the patient's white count is 5.1 hemoglobin 12 hematocrit 37. Potassium 3.9 with a BUN of 25 creatinine 0.54 and GFR greater than 60. Glucose 112. Strep test positive. Influenza AB-. Chest x-ray was done AP and lateral view and reviewed radiologist's his final impression is the lungs remain clear. Pleural spaces are clear. The heart is not enlarged. Impression; normal chest. As read by Dr. Pradhan Patient denies taking any drugs. She does a past history of overdose on heroin. Drug screen today is positive for marijuana and methamphetamine. Patient be advised to consider rehabilitation. In the meanwhile prescription for amoxicillin 500 mg 3 times a day 10 days be prescribed. Advised to use [id number] cough syrups Tylenol and ibuprofen for pain. The patient has had significant problem with narcotics in the past no narcotics be prescribed at this visit. Advised to call follow-up with family physician. - Lab Data Result diagrams: 09/06/17 12:50 09/06/17 12:50 Lab Results 09/06/17 09/06/17 09/06/17 Range/Units 12:50 12:50 12:50 WBC 5.1 (3.8-10.6) k/uL RBC 3.76 L (3.80-5.40) m/uL Hgb 12.7 (11.4-16.0) gm/dL Hct 37.4 (34.0-46.0) % MCV 99.3 (80.0-100.0) fL MCH 33.8 (25.0-35.0) pg MCHC 34.0 (31.0-37.0) g/dL RDW 14.4 (11.5-15.5) % Plt Count 211 (150-450) k/uL Neutrophils % 62 % Lymphocytes % 21 % Monocytes % 8 % Eosinophils % 5 % Basophils % 1 % Neutrophils # 3.2 (1.3-7.7) k/uL Lymphocytes # 1.1 (1.0-4.8) k/uL Monocytes # 0.4 (0-1.0) k/uL Eosinophils # 0.2 (0-0.7) k/uL Basophils # 0.0 (0-0.2) k/uL Sodium 139 (137-145) mmol/L Potassium 3.9 (3.5-5.1) mmol/L Chloride 104 (98-107) mmol/L Carbon Dioxide 28 (22-30) mmol/L Anion Gap 7 mmol/L BUN 5 L (7-17) mg/dL Creatinine 0.54 (0.52-1.04) mg/dL Est GFR (MDRD) Af Amer >60 (>60 ml/min/1.73 sqM) Est GFR (MDRD) Non-Af >60 (>60 ml/min/1.73 sqM) Glucose 112 H (74-99) mg/dL Calcium 8.9 (8.4-10.2) mg/dL Total Bilirubin 0.3 (0.2-1.3) mg/dL AST 37 H (14-36) U/L ALT 49 (9-52) U/L Alkaline Phosphatase 99 (38-126) U/L Total Protein 6.7 (6.3-8.2) g/dL Albumin 3.8 (3.5-5.0) g/dL Urine Color Urine Appearance (Clear) Urine pH (5.0-8.0) Ur Specific Cobb (1.001-1.035) Urine Protein (Negative) Urine Glucose (UA) (Negative) Urine Ketones (Negative) Urine Blood (Negative) Urine Nitrite (Negative) Urine Bilirubin (Negative) Urine Urobilinogen (<2.0) mg/dL Ur Leukocyte Esterase (Negative) Urine RBC (0-5) /hpf Urine WBC (0-5) /hpf Ur Squamous Epith Cells (0-4) /hpf Urine Bacteria (None) /hpf Urine Opiates Screen (NotDetected) Ur Oxycodone Screen (NotDetected) Urine Methadone Screen (NotDetected) Ur Propoxyphene Screen (NotDetected) Ur Barbiturates Screen (NotDetected) U Tricyclic Antidepress (NotDetected) Ur Phencyclidine Scrn (NotDetected) Ur Amphetamines Screen (NotDetected) U Methamphetamines Scrn (NotDetected) U Benzodiazepines Scrn (NotDetected) Urine Cocaine Screen (NotDetected) U Marijuana (THC) Screen (NotDetected) Influenza Type A RNA Not Detected (Not Detectd) Influenza Type B (PCR) Not Detected (Not Detectd) Group A Strep Rapid (Negative) 09/06/17 09/06/17 09/06/17 Range/Units 12:50 12:50 12:50 WBC (3.8-10.6) k/uL RBC (3.80-5.40) m/uL Hgb (11.4-16.0) gm/dL Hct (34.0-46.0) % MCV (80.0-100.0) fL MCH (25.0-35.0) pg MCHC (31.0-37.0) g/dL RDW (11.5-15.5) % Plt Count (150-450) k/uL Neutrophils % % Lymphocytes % % Monocytes % % Eosinophils % % Basophils % % Neutrophils # (1.3-7.7) k/uL Lymphocytes # (1.0-4.8) k/uL Monocytes # (0-1.0) k/uL Eosinophils # (0-0.7) k/uL Basophils # (0-0.2) k/uL Sodium (137-145) mmol/L Potassium (3.5-5.1) mmol/L Chloride (98-107) mmol/L Carbon Dioxide (22-30) mmol/L Anion Gap mmol/L BUN (7-17) mg/dL Creatinine (0.52-1.04) mg/dL Est GFR (MDRD) Af Amer (>60 ml/min/1.73 sqM) Est GFR (MDRD) Non-Af (>60 ml/min/1.73 sqM) Glucose (74-99) mg/dL Calcium (8.4-10.2) mg/dL Total Bilirubin (0.2-1.3) mg/dL AST (14-36) U/L ALT (9-52) U/L Alkaline Phosphatase (38-126) U/L Total Protein (6.3-8.2) g/dL Albumin (3.5-5.0) g/dL Urine Color Yellow Urine Appearance Cloudy H (Clear) Urine pH 6.0 (5.0-8.0) Ur Specific Cobb 1.013 (1.001-1.035) Urine Protein Trace H (Negative) Urine Glucose (UA) Negative (Negative) Urine Ketones Negative (Negative) Urine Blood Negative (Negative) Urine Nitrite Negative (Negative) Urine Bilirubin Negative (Negative) Urine Urobilinogen 2.0 (<2.0) mg/dL Ur Leukocyte Esterase Negative (Negative) Urine RBC 1 (0-5) /hpf Urine WBC 6 H (0-5) /hpf Ur Squamous Epith Cells 43 H (0-4) /hpf Urine Bacteria Moderate H (None) /hpf Urine Opiates Screen Not Detected (NotDetected) Ur Oxycodone Screen Not Detected (NotDetected) Urine Methadone Screen Not Detected (NotDetected) Ur Propoxyphene Screen Not Detected (NotDetected) Ur Barbiturates Screen Not Detected (NotDetected) U Tricyclic Antidepress Not Detected (NotDetected) Ur Phencyclidine Scrn Not Detected (NotDetected) Ur Amphetamines Screen Not Detected (NotDetected) U Methamphetamines Scrn Detected H (NotDetected) U Benzodiazepines Scrn Not Detected (NotDetected) Urine Cocaine Screen Not Detected (NotDetected) U Marijuana (THC) Screen Detected H (NotDetected) Influenza Type A RNA (Not Detectd) Influenza Type B (PCR) (Not Detectd) Group A Strep Rapid Positive A (Negative) Disposition Clinical Impression: Strep sore throat, Drug abuse and dependence Disposition: HOME SELF-CARE Condition: Fair Instructions: Strep Throat (ED) Additional Instructions: Increase fluids, use Tylenol for pain and fever. [id number] cough preparations as needed. Follow-up with family physician and consider if needed rehabilitation program for drugs of abuse. Prescriptions: Amoxicillin 500 mg PO Q8H 10 Days Referrals: Louann Carlos MD [Primary Care Provider] - 1-2 days Time of Disposition: 14:16
[2017-09-06 14:32] VITALS: BP 127/78; PULSE 80; RESP 16; TEMP 98
== END 2017-09-06 14:31 | disposition home or self-care (01) ==
LOC: EC 11:43
DX: J02.0 Streptococcal pharyngitis (principal); F19.20 Other psychoactive substance dependence, uncomplicated; F41.9 Anxiety disorder, unspecified; F17.200 Nicotine dependence, unspecified, uncomplicated; Z79.51 Long term (current) use of inhaled steroids; Z79.899 Other long term (current) drug therapy; Z88.6 Allergy status to analgesic agent; Z88.8 Allergy status to other drugs, medicaments and biological substances; Z91.09 Other allergy status, other than to drugs and biological substances; Z87.19 Personal history of other diseases of the digestive system
CPT/HCPCS: 36415; 71020; 80053; 80306; 81001; 85025; 87086; 87430; 87502; 99284

== ENCOUNTER 2018-06-30 19:56 | Emergency (ER) | payer OTHER ==
[2018-06-30 20:08] VITALS: RESP 18
--- NOTE | 2018-06-30 21:14 | ED ---
General Adult HPI - General Chief complaint: Recheck/Abnormal Lab/Rx Stated complaint: [place] Tick bite x 2 days Source: patient Mode of arrival: wheelchair Limitations: no limitations - History of Present Illness Initial comments: Dictation was produced using [employer] technology dictation software. please excuse any grammatical, word or spelling errors. Chief Complaint: 42-year-old female with past medical history pancreatic otitis, drug abuse right-sided flank pain 2 days. History of Present Illness: Patient states she was in her backyard when she was bitten by deer tick. She believes she has cellulitis. Patient states she has pain that radiates from her right flank although down to her anterior abdomen, CVA area, right groin and right upper quadrant. Chart review shows that patient has past medical history of polysubstance abuse. She adamantly denies any drug abuse. Patient is stating that she is in significant pain. She believes that the tick burrowed its head into her body causing her infection intra-abdominally. The ROS documented in this emergency department record has been reviewed and confirmed by me. Those systems with pertinent positive or negative responses have been documented in the HPI. All other systems are other negative and/or noncontributory. - Related Data Home Medications Medication Instructions Recorded Confirmed Dextroamphetamine/Amphetamine 30 mg PO BID 06/30/18 06/30/18 [Adderall] Ibuprofen [Motrin Ib] 400 mg PO Q6HR PRN 06/30/18 06/30/18 diphenhydrAMINE HCL [Benadryl] 25 mg PO DAILY PRN 06/30/18 06/30/18 Allergies Allergy/AdvReac Type Severity Reaction Status Date / Time carbamazepine [From Tegretol] Allergy Itching Verified 06/30/18 20:54 corn Allergy Nausea & Verified 06/30/18 20:54 Vomiting & Diarrhea grass pollen-perennial rye, Allergy Itching Verified 06/30/18 20:54 standar [grass poll-perennial rye,std] ketorolac tromethamine Allergy Rash/Hives Verified 06/30/18 20:54 [From Toradol] promethazine [From Phenergan] Allergy Itching Verified 06/30/18 20:54 Review of Systems ROS Statement: Those systems with pertinent positive or pertinent negative responses have been documented in the HPI. ROS Other: All systems not noted in ROS Statement are negative. Past Medical History Past Medical History: GI Bleed, Pneumonia Additional Past Medical History / Comment(s): HX CROHN'S, CHRONIC SHOULDER PAIN ; Cyst under L armpit, cellulitis History of Any Multi-Drug Resistant Organisms: MRSA Date of last positivie culture/infection: 2000 MDRO Source:: abdomen Past Surgical History: Bowel Resection, Section, Cholecystectomy, Hysterectomy, Joint Replacement Additional Past Surgical History / Comment(s): RT SHOULDER REPLACEMENT Past Anesthesia/Blood Transfusion Reactions: Motion Sickness Additional Past Anesthesia/Blood Transfusion Reaction / Comment(s): pt adopted Past Psychological History: ADD/ADHD, Anxiety, Bipolar, Depression, PTSD Smoking Status: Current every day smoker Past Alcohol Use History: Occasional Past Drug Use History: Marijuana - Past Family History Mother Family Medical History: Unable to Obtain Additional Family Medical History / Comment(s): pt adopted General Exam - General Exam Comments Initial Comments: PHYSICAL EXAM: General Impression: Alert and oriented x3, anxious HEENT: Normocephalic atraumatic, extra-ocular movements intact, pupils equal and reactive to light bilaterally, mucous membranes moist. Cardiovascular: Heart regular rate and rhythm, S1&S2 audible, no murmurs, rubs or gallops Chest: Lungs clear to auscultation bilaterally, no rhonchi, no wheeze, no rales Abdomen: Bowel sounds present, abdomen soft, non-tender, non-distended, no organomegaly Musculoskeletal: Pulses present and equal in all extremities, no peripheral edema Motor: Power 5/5 bilaterally, no focal deficits noted Neurological: CN II-XII grossly intact, no focal motor or sensory deficits noted Skin: Small 2 cm area of ecchymosis at the right flank with 2 mm ulcer. No significant erythema or drainage Psych: Normal affect and mood Limitations: no limitations Course Vital Signs 06/30/18 20:06 Temperature 98.0 F Pulse Rate 94 Respiratory 18 Rate Blood Pressure 124/66 O2 Sat by Pulse 100 Oximetry Medical Decision Making - Medical Decision Making ED course: 42-year-old female with past medical history of polysubstance abuse presents with right sided flank pain/abdominal pain. All signs upon arrival are within acceptable limits. [facility] report was reviewed patient filled a 30 day supply of hydrocodone on the of last month. Patient was adamantly requesting pain medications with Benadryl. Given clinical presentation is some suspicion that patient is drug seeking.Laboratory evaluation obtained. CBC unremarkable. [place] panel is grossly unremarkable. Mild hyperglycemia 102. Chloride 111. No gap acidosis. Lipase mildly elevated at 529. Computed tomography scan of the abdomen and pelvis was obtained showing no acute processes. He tolerated by mouth. [place] and discharge. She is advised follow-up with primary care physician of. Patient is told she had mild pancreatitis. Because of metabolic is panel is within acceptable limits and she is history of cholecystectomy. No further workup needed. - Lab Data Result diagrams: 06/30/18 22:00 06/30/18 22:00 Lab Results 06/30/18 06/30/18 Range/Units 22:00 22:00 WBC 7.2 (3.8-10.6) k/uL RBC 3.90 (3.80-5.40) m/uL Hgb 12.8 (11.4-16.0) gm/dL Hct 36.7 (34.0-46.0) % MCV 94.1 (80.0-100.0) fL MCH 32.9 (25.0-35.0) pg MCHC 34.9 (31.0-37.0) g/dL RDW 13.0 (11.5-15.5) % Plt Count 230 (150-450) k/uL Neutrophils % 68 % Lymphocytes % 19 % Monocytes % 8 % Eosinophils % 3 % Basophils % 0 % Neutrophils # 4.9 (1.3-7.7) k/uL Lymphocytes # 1.3 (1.0-4.8) k/uL Monocytes # 0.6 (0-1.0) k/uL Eosinophils # 0.2 (0-0.7) k/uL Basophils # 0.0 (0-0.2) k/uL Sodium 142 (137-145) mmol/L Potassium 3.5 (3.5-5.1) mmol/L Chloride 111 H (98-107) mmol/L Carbon Dioxide 22 (22-30) mmol/L Anion Gap 9 mmol/L BUN 14 (7-17) mg/dL Creatinine 0.73 (0.52-1.04) mg/dL Est GFR (CKD-EPI)AfAm >90 (>60 ml/min/1.73 sqM) Est GFR (CKD-EPI)NonAf >90 (>60 ml/min/1.73 sqM) Glucose 102 H (74-99) mg/dL Calcium 9.4 (8.4-10.2) mg/dL Total Bilirubin 0.6 (0.2-1.3) mg/dL AST 21 (14-36) U/L ALT 32 (9-52) U/L Alkaline Phosphatase 74 (38-126) U/L Total Protein 6.7 (6.3-8.2) g/dL Albumin 4.3 (3.5-5.0) g/dL Lipase 529 H (23-300) U/L Disposition Clinical Impression: Pancreatitis Disposition: HOME SELF-CARE Is patient prescribed a controlled substance at d/c from ED?: No Referrals: Louann Carlos MD [STAFF PHYSICIAN] - 1-2 days Time of Disposition: 23:49
[2018-06-30] MEDS ORDERED: diphenhydrAMINE 50 MG/ML 1 ML VIAL IVP STA (22:08)
[2018-06-30] MEDS ORDERED: ACETAMINOPHEN TAB 500 MG TAB PO STA (22:09)
[2018-06-30 22:17] LABS: Basophils % (A) 0 %; Eosinophils # (A) 0.2 k/uL (0-0.7); Eosinophils % (A) 3 %; HCT 36.7 % (34.0-46.0); HGB 12.8 gm/dL (11.4-16.0); Lymphocytes # (A) 1.3 k/uL (1.0-4.8); Lymphocytes % (A) 19 %; MCH 32.9 pg (25.0-35.0); MCHC 34.9 g/dL (31.0-37.0); MCV 94.1 fL (80.0-100.0); Mean Platelet Volume 7.5; Monocytes # (A) 0.6 k/uL (0-1.0); Monocytes % (A) 8 %; Neutrophils # (A) 4.9 k/uL (1.3-7.7); Neutrophils % (A) 68 %; Platelet Count 230 k/uL (150-450); WBC 7.2 k/uL (3.8-10.6)
[2018-06-30 22:34] LABS: ALT 32 U/L (9-52); AST 21 U/L (14-36); Albumin 4.3 g/dL (3.5-5.0); Alkaline Phosphatase 74 U/L (38-126); Anion Gap 9 mmol/L; Blood Urea Nitrogen 14 mg/dL (7-17); Calcium 9.4 mg/dL (8.4-10.2); Carbon Dioxide 22 mmol/L (22-30); Chloride 111 mmol/L (98-107); Glucose 102 mg/dL (74-99); Lipase 529 U/L (23-300); Potassium 3.5 mmol/L (3.5-5.1); Sodium 142 mmol/L (137-145); Total Bilirubin 0.6 mg/dL (0.2-1.3); Total Protein 6.7 g/dL (6.3-8.2)
--- NOTE | 2018-06-30 23:09 | CT ---
EXAMINATION TYPE: CT abdomen pelvis w con DATE OF EXAM: 06/30/2018 COMPARISON: 07/01/2014 HISTORY: Pain CT DLP: 964 mGycm Automated exposure control for dose reduction was used. TECHNIQUE: Helical acquisition of images was performed from the lung bases through the pelvis. CONTRAST: Performed without Oral Contrast and with IV Contrast, patient injected with 100 mL of Isovue 300. FINDINGS: Lung bases are clear. There is no pleural effusion. Heart size is normal. Liver and spleen appear normal. Bile ducts are not dilated. There is no pancreatic mass. There are cl ips from cholecystectomy. There is no adrenal mass. Kidneys show satisfactory contrast opacification. There is no hydronephrosi s. There is no ascites. Bladder distends smoothly. The appendix appears normal. The bony structures are intact. There is no evidence of free air. IMPRESSION: NEGATIVE CT SCAN OF THE ABDOMEN AND PELVIS. NORMAL APPENDIX. NO ADVERSE CHANGE COMPARED TO OLD EXAM.
[2018-06-30] MEDS ORDERED: HYDROcodone/APAP 5-325MG 1 EACH TAB PO STA (23:48)
[2018-06-30 23:56] LABS: Appearance,Urine Clear (Clear); Bilirubin,Urine Negative (Negative); Blood,Urine Negative (Negative); Color,Urine Colorless; Glucose,Urine (UA) Negative (Negative); Ketones,Urine Negative (Negative); Leukocyte Esterase,Urine Negative (Negative); Mucus,Urine Rare /hpf; Nitrite,Urine Positive (Negative); Protein,Urine Negative (Negative); RBC,Urine 1 /hpf (0-5); Specific Gravity,Urine 1.003 (1.001-1.035); Urobilinogen,Urine <2.0 mg/dL (<2.0)
[2018-07-01 00:05] VITALS: BP 120/66; PULSE 88; TEMP 98.2
== END 2018-07-01 00:05 | disposition home or self-care (01) ==
LOC: EC 19:56
DX: K85.90 Acute pancreatitis without necrosis or infection, unspecified (principal); S30.861A Insect bite (nonvenomous) of abdominal wall, initial encounter; F90.9 Attention-deficit hyperactivity disorder, unspecified type; F17.200 Nicotine dependence, unspecified, uncomplicated; Z90.49 Acquired absence of other specified parts of digestive tract; Z98.890 Other specified postprocedural states; Z90.710 Acquired absence of both cervix and uterus; Z96.611 Presence of right artificial shoulder joint; Z79.899 Other long term (current) drug therapy; Z86.14 Personal history of Methicillin resistant Staphylococcus aureus infection; Z88.6 Allergy status to analgesic agent; Z88.8 Allergy status to other drugs, medicaments and biological substances; Z91.048 Other nonmedicinal substance allergy status; W57.XXXA Bitten or stung by nonvenomous insect and other nonvenomous arthropods, initial encounter
CPT/HCPCS: 36415; 80053; 83690; 85025; 81001; 74177; 99284; 96374; J1200; Q9967

== ENCOUNTER 2018-07-01 04:06 | Emergency (ER) | payer OTHER ==
[2018-07-01] MEDS ORDERED: LORazepam 1 MG TAB PO STA ×2 (04:14→04:20)
--- NOTE | 2018-07-01 04:18 | ED ---
General Adult HPI - General Source: patient, EMS Mode of arrival: EMS Limitations: altered mental status <Miguel Lara - Last Filed: 07/01/18 04:18> <Tab Islas - Last Filed: 07/01/18 12:18> - General Chief complaint: Psychiatric Symptoms Stated complaint: Hallucinations - History of Present Illness Initial comments: Dictation was produced using [employer] dictation software. please excuse any grammatical, word or spelling errors. Chief Complaint: 42-year-old female with past medical history of opiate abuse presents with paranoid behavior. History of Present Illness: She is a 42-year-old female who was seen by me earlier today for bug bite to the left flank presents with paranoid behavior. Enforcement was called because patient was allegedly knocking on neighbors door naked. She states that she believes is 70 showing occasional her. She states that her shampoo was causing severe vail to her head. Patient was discovered by enrober on her severely paranoid. Patient is brought in by EMS. Patient is unreliable historian at this time. She believes her shampoo entered her body. The ROS documented in this emergency department record has been reviewed and confirmed by me. Those systems with pertinent positive or negative responses have been documented in the HPI. All other systems are other negative and/or noncontributory. (Miguel Lara) - Related Data Home Medications Medication Instructions Recorded Confirmed ARIPiprazole [Abilify] 10 mg PO DAILY 07/01/18 07/01/18 Baclofen 10 mg PO BID 07/01/18 07/01/18 FLUoxetine HCL [PROzac] 40 mg PO DAILY 07/01/18 07/01/18 Gabapentin [Neurontin] 600 mg PO TID 07/01/18 07/01/18 Hydrocodone/Acetaminophen [Tyler 1 tab PO BID PRN 07/01/18 07/01/18 5-325] Ibuprofen [Motrin] 600 mg PO Q8HR PRN 07/01/18 07/01/18 Magic Mouth Wash 5 ml PO Q4H 07/01/18 07/01/18 Omeprazole [PriLOSEC] 20 mg PO AC-BID 07/01/18 07/01/18 Prochlorperazine [Compazine] 10 mg PO BID PRN 07/01/18 07/01/18 Varenicline Tartrate [Chantix See Taper PO DIRECTED 07/01/18 07/01/18 Starter Pack] busPIRone HCL [Buspar] 30 mg PO BID 07/01/18 07/01/18 traMADol HCL [Ultram] 50 mg PO BID PRN 07/01/18 07/01/18 traZODone HCL 150 mg PO HS 07/01/18 07/01/18 Allergies Allergy/AdvReac Type Severity Reaction Status Date / Time carbamazepine [From Tegretol] Allergy Itching Verified 07/01/18 04:15 corn Allergy Nausea & Verified 07/01/18 04:15 Vomiting & Diarrhea grass pollen-perennial rye, Allergy Itching Verified 07/01/18 04:15 standar [grass poll-perennial rye,std] ketorolac tromethamine Allergy Rash/Hives Verified 07/01/18 04:15 [From Toradol] promethazine [From Phenergan] Allergy Itching Verified 07/01/18 04:15 Review of Systems ROS Other: All systems not noted in ROS Statement are negative. <Miguel Lara - Last Filed: 07/01/18 04:18> ROS Other: All systems not noted in ROS Statement are negative. <Tab Islas - Last Filed: 07/01/18 12:18> ROS Statement: Those systems with pertinent positive or pertinent negative responses have been documented in the HPI. Past Medical History Past Medical History: GI Bleed, Pneumonia Additional Past Medical History / Comment(s): HX CROHN'S, CHRONIC SHOULDER PAIN ; Cyst under L armpit, cellulitis History of Any Multi-Drug Resistant Organisms: MRSA Date of last positivie culture/infection: 2000 MDRO Source:: abdomen Past Surgical History: Bowel Resection, Section, Cholecystectomy, Hysterectomy, Joint Replacement Additional Past Surgical History / Comment(s): RT SHOULDER REPLACEMENT Past Anesthesia/Blood Transfusion Reactions: Motion Sickness Additional Past Anesthesia/Blood Transfusion Reaction / Comment(s): pt adopted Past Psychological History: ADD/ADHD, Anxiety, Bipolar, Depression, PTSD Smoking Status: Current every day smoker Past Alcohol Use History: Occasional Past Drug Use History: Marijuana - Past Family History Mother Family Medical History: Unable to Obtain Additional Family Medical History / Comment(s): pt adopted <Miguel Lara - Last Filed: 07/01/18 04:18> General Exam Limitations: altered mental status <Miguel Lara - Last Filed: 07/01/18 04:18> <Tab Islas - Last Filed: 07/01/18 12:18> - General Exam Comments Initial Comments: PHYSICAL EXAM: General Impression: Alert and oriented x3, anxious HEENT: Normocephalic atraumatic, extra-ocular movements intact, pupils equal and reactive to light bilaterally, mucous membranes moist. Cardiovascular: Heart regular rate and rhythm, S1&S2 audible, no murmurs, rubs or gallops Chest: Lungs clear to auscultation bilaterally, no rhonchi, no wheeze, no rales Abdomen: Bowel sounds present, abdomen soft, non-tender, non-distended, no organomegaly Musculoskeletal: Pulses present and equal in all extremities, no peripheral edema Motor: Power 5/5 bilaterally, no focal deficits noted Neurological: CN II-XII grossly intact, no focal motor or sensory deficits noted Skin: Intact with no visualized rashes Psych: Anxious, paranoid (Miguel Lara) Course <Miguel Lara - Last Filed: 07/01/18 04:18> <Tab Islas - Last Filed: 07/01/18 12:18> Vital Signs 07/01/18 07/01/18 04:09 10:32 Temperature 98.7 F 98.2 F Pulse Rate 108 H 95 Respiratory 40 H 18 Rate Blood Pressure 159/86 118/57 O2 Sat by Pulse 100 98 Oximetry - Reevaluation(s) Reevaluation #1: 07/01/18 12:17 The patient was evaluated by the mobile crisis unit psychiatry. She'll be discharged with outpatient evaluation (Tab Islas) Medical Decision Making - Lab Data Result diagrams: 07/01/18 04:47 07/01/18 04:47 <Tab Islas - Last Filed: 07/01/18 12:18> - Medical Decision Making ED course: Is a 42-year-old female presents with paranoid behavior. Patient adamantly denies psychiatric history. Patient was seen by myself earlier today where patient is worried about a bug bite to her right flank. Vital signs upon arrival shows respiratory rate of 40, heart rate of 1 week. Patient is clearly anxious. No physical exam findings to suggest any caustic injury to the skin or head. Patient appears anxious. She is given anxiolytics. Given the degree of patient's paranoid behavior while consult EPS team. (Miguel Lara) - Lab Data Lab Results 07/01/18 07/01/18 07/01/18 Range/Units 04:47 04:47 04:47 WBC 7.0 (3.8-10.6) k/uL RBC 3.99 (3.80-5.40) m/uL Hgb 13.3 (11.4-16.0) gm/dL Hct 37.3 (34.0-46.0) % MCV 93.6 (80.0-100.0) fL MCH 33.4 (25.0-35.0) pg MCHC 35.6 (31.0-37.0) g/dL RDW 13.0 (11.5-15.5) % Plt Count 258 (150-450) k/uL Neutrophils % 69 % Lymphocytes % 18 % Monocytes % 9 % Eosinophils % 3 % Basophils % 0 % Neutrophils # 4.8 (1.3-7.7) k/uL Lymphocytes # 1.2 (1.0-4.8) k/uL Monocytes # 0.6 (0-1.0) k/uL Eosinophils # 0.2 (0-0.7) k/uL Basophils # 0.0 (0-0.2) k/uL Sodium 141 (137-145) mmol/L Potassium 3.6 (3.5-5.1) mmol/L Chloride 114 H (98-107) mmol/L Carbon Dioxide 17 L (22-30) mmol/L Anion Gap 10 mmol/L BUN 13 (7-17) mg/dL Creatinine 0.79 (0.52-1.04) mg/dL Est GFR (CKD-EPI)AfAm >90 (>60 ml/min/1.73 sqM) Est GFR (CKD-EPI)NonAf >90 (>60 ml/min/1.73 sqM) Glucose 95 (74-99) mg/dL Calcium 9.6 (8.4-10.2) mg/dL Total Bilirubin 0.8 (0.2-1.3) mg/dL AST 22 (14-36) U/L ALT 29 (9-52) U/L Alkaline Phosphatase 82 (38-126) U/L Total Protein 7.0 (6.3-8.2) g/dL Albumin 4.3 (3.5-5.0) g/dL Urine HCG, Qual (Not Detectd) Urine Opiates Screen (NotDetected) Ur Oxycodone Screen (NotDetected) Urine Methadone Screen (NotDetected) Ur Propoxyphene Screen (NotDetected) Ur Barbiturates Screen (NotDetected) U Tricyclic Antidepress (NotDetected) Ur Phencyclidine Scrn (NotDetected) Ur Amphetamines Screen (NotDetected) U Methamphetamines Scrn (NotDetected) U Benzodiazepines Scrn (NotDetected) Urine Cocaine Screen (NotDetected) U Marijuana (THC) Screen (NotDetected) Serum Alcohol <10 mg/dL 07/01/18 07/01/18 Range/Units 10:15 10:15 WBC (3.8-10.6) k/uL RBC (3.80-5.40) m/uL Hgb (11.4-16.0) gm/dL Hct (34.0-46.0) % MCV (80.0-100.0) fL MCH (25.0-35.0) pg MCHC (31.0-37.0) g/dL RDW (11.5-15.5) % Plt Count (150-450) k/uL Neutrophils % % Lymphocytes % % Monocytes % % Eosinophils % % Basophils % % Neutrophils # (1.3-7.7) k/uL Lymphocytes # (1.0-4.8) k/uL Monocytes # (0-1.0) k/uL Eosinophils # (0-0.7) k/uL Basophils # (0-0.2) k/uL Sodium (137-145) mmol/L Potassium (3.5-5.1) mmol/L Chloride (98-107) mmol/L Carbon Dioxide (22-30) mmol/L Anion Gap mmol/L BUN (7-17) mg/dL Creatinine (0.52-1.04) mg/dL Est GFR (CKD-EPI)AfAm (>60 ml/min/1.73 sqM) Est GFR (CKD-EPI)NonAf (>60 ml/min/1.73 sqM) Glucose (74-99) mg/dL Calcium (8.4-10.2) mg/dL Total Bilirubin (0.2-1.3) mg/dL AST (14-36) U/L ALT (9-52) U/L Alkaline Phosphatase (38-126) U/L Total Protein (6.3-8.2) g/dL Albumin (3.5-5.0) g/dL Urine HCG, Qual Not Detected (Not Detectd) Urine Opiates Screen Not Detected (NotDetected) Ur Oxycodone Screen Not Detected (NotDetected) Urine Methadone Screen Not Detected (NotDetected) Ur Propoxyphene Screen Not Detected (NotDetected) Ur Barbiturates Screen Not Detected (NotDetected) U Tricyclic Antidepress Detected H (NotDetected) Ur Phencyclidine Scrn Not Detected (NotDetected) Ur Amphetamines Screen Detected H (NotDetected) U Methamphetamines Scrn Not Detected (NotDetected) U Benzodiazepines Scrn Detected H (NotDetected) Urine Cocaine Screen Detected H (NotDetected) U Marijuana (THC) Screen Detected H (NotDetected) Serum Alcohol mg/dL Disposition <Miguel Lara - Last Filed: 07/01/18 04:18> Is patient prescribed a controlled substance at d/c from ED?: No <Tab Islas - Last Filed: 07/01/18 12:18> Clinical Impression: Adjustment reaction Disposition: HOME SELF-CARE Condition: Good Instructions: Mood Disorders (ED) Referrals: [facility] [Primary Care Provider] - 1-2 days
[2018-07-01 05:00] LABS: Basophils % (A) 0 %; Eosinophils # (A) 0.2 k/uL (0-0.7); Eosinophils % (A) 3 %; HCT 37.3 % (34.0-46.0); HGB 13.3 gm/dL (11.4-16.0); Lymphocytes # (A) 1.2 k/uL (1.0-4.8); Lymphocytes % (A) 18 %; MCH 33.4 pg (25.0-35.0); MCHC 35.6 g/dL (31.0-37.0); MCV 93.6 fL (80.0-100.0); Mean Platelet Volume 7.8; Monocytes # (A) 0.6 k/uL (0-1.0); Monocytes % (A) 9 %; Neutrophils # (A) 4.8 k/uL (1.3-7.7); Neutrophils % (A) 69 %; Platelet Count 258 k/uL (150-450); RBC 3.99 m/uL (3.80-5.40)
[2018-07-01 07:11] LABS: ALT 29 U/L (9-52); AST 22 U/L (14-36); Albumin 4.3 g/dL (3.5-5.0); Alkaline Phosphatase 82 U/L (38-126); Anion Gap 10 mmol/L; Blood Urea Nitrogen 13 mg/dL (7-17); Calcium 9.6 mg/dL (8.4-10.2); Carbon Dioxide 17 mmol/L (22-30); Chloride 114 mmol/L (98-107); Glucose 95 mg/dL (74-99); Potassium 3.6 mmol/L (3.5-5.1); Sodium 141 mmol/L (137-145); Total Bilirubin 0.8 mg/dL (0.2-1.3)
[2018-07-01 10:33] VITALS: RESP 18
[2018-07-01 10:48] LABS: Amphetamine Screen,Urine Detected (NotDetected); Barbiturate Screen,Urine Not Detected (NotDetected); Benzodiazepines Screen,Urine Detected (NotDetected); Cocaine Screen,Urine Detected (NotDetected); Methadone Screen, Urine Not Detected (NotDetected); Opiate Screen,Urine Not Detected (NotDetected); Oxycodone Screen, Urine Not Detected (NotDetected); Phencyclidine Screen,Urine Not Detected (NotDetected); Tricyclic Antidepressant,Urine Detected (NotDetected); Urn Cannabinoid Scrn Detected (NotDetected)
--- NOTE | 2018-07-01 12:21 | ED ---
Medical Decision Making - Lab Data Result diagrams: 07/01/18 04:47 07/01/18 04:47 Lab Results 07/01/18 07/01/18 07/01/18 Range/Units 04:47 04:47 04:47 WBC 7.0 (3.8-10.6) k/uL RBC 3.99 (3.80-5.40) m/uL Hgb 13.3 (11.4-16.0) gm/dL Hct 37.3 (34.0-46.0) % MCV 93.6 (80.0-100.0) fL MCH 33.4 (25.0-35.0) pg MCHC 35.6 (31.0-37.0) g/dL RDW 13.0 (11.5-15.5) % Plt Count 258 (150-450) k/uL Neutrophils % 69 % Lymphocytes % 18 % Monocytes % 9 % Eosinophils % 3 % Basophils % 0 % Neutrophils # 4.8 (1.3-7.7) k/uL Lymphocytes # 1.2 (1.0-4.8) k/uL Monocytes # 0.6 (0-1.0) k/uL Eosinophils # 0.2 (0-0.7) k/uL Basophils # 0.0 (0-0.2) k/uL Sodium 141 (137-145) mmol/L Potassium 3.6 (3.5-5.1) mmol/L Chloride 114 H (98-107) mmol/L Carbon Dioxide 17 L (22-30) mmol/L Anion Gap 10 mmol/L BUN 13 (7-17) mg/dL Creatinine 0.79 (0.52-1.04) mg/dL Est GFR (CKD-EPI)AfAm >90 (>60 ml/min/1.73 sqM) Est GFR (CKD-EPI)NonAf >90 (>60 ml/min/1.73 sqM) Glucose 95 (74-99) mg/dL Calcium 9.6 (8.4-10.2) mg/dL Total Bilirubin 0.8 (0.2-1.3) mg/dL AST 22 (14-36) U/L ALT 29 (9-52) U/L Alkaline Phosphatase 82 (38-126) U/L Total Protein 7.0 (6.3-8.2) g/dL Albumin 4.3 (3.5-5.0) g/dL Urine HCG, Qual (Not Detectd) Urine Opiates Screen (NotDetected) Ur Oxycodone Screen (NotDetected) Urine Methadone Screen (NotDetected) Ur Propoxyphene Screen (NotDetected) Ur Barbiturates Screen (NotDetected) U Tricyclic Antidepress (NotDetected) Ur Phencyclidine Scrn (NotDetected) Ur Amphetamines Screen (NotDetected) U Methamphetamines Scrn (NotDetected) U Benzodiazepines Scrn (NotDetected) Urine Cocaine Screen (NotDetected) U Marijuana (THC) Screen (NotDetected) Serum Alcohol <10 mg/dL 07/01/18 07/01/18 Range/Units 10:15 10:15 WBC (3.8-10.6) k/uL RBC (3.80-5.40) m/uL Hgb (11.4-16.0) gm/dL Hct (34.0-46.0) % MCV (80.0-100.0) fL MCH (25.0-35.0) pg MCHC (31.0-37.0) g/dL RDW (11.5-15.5) % Plt Count (150-450) k/uL Neutrophils % % Lymphocytes % % Monocytes % % Eosinophils % % Basophils % % Neutrophils # (1.3-7.7) k/uL Lymphocytes # (1.0-4.8) k/uL Monocytes # (0-1.0) k/uL Eosinophils # (0-0.7) k/uL Basophils # (0-0.2) k/uL Sodium (137-145) mmol/L Potassium (3.5-5.1) mmol/L Chloride (98-107) mmol/L Carbon Dioxide (22-30) mmol/L Anion Gap mmol/L BUN (7-17) mg/dL Creatinine (0.52-1.04) mg/dL Est GFR (CKD-EPI)AfAm (>60 ml/min/1.73 sqM) Est GFR (CKD-EPI)NonAf (>60 ml/min/1.73 sqM) Glucose (74-99) mg/dL Calcium (8.4-10.2) mg/dL Total Bilirubin (0.2-1.3) mg/dL AST (14-36) U/L ALT (9-52) U/L Alkaline Phosphatase (38-126) U/L Total Protein (6.3-8.2) g/dL Albumin (3.5-5.0) g/dL Urine HCG, Qual Not Detected (Not Detectd) Urine Opiates Screen Not Detected (NotDetected) Ur Oxycodone Screen Not Detected (NotDetected) Urine Methadone Screen Not Detected (NotDetected) Ur Propoxyphene Screen Not Detected (NotDetected) Ur Barbiturates Screen Not Detected (NotDetected) U Tricyclic Antidepress Detected H (NotDetected) Ur Phencyclidine Scrn Not Detected (NotDetected) Ur Amphetamines Screen Detected H (NotDetected) U Methamphetamines Scrn Not Detected (NotDetected) U Benzodiazepines Scrn Detected H (NotDetected) Urine Cocaine Screen Detected H (NotDetected) U Marijuana (THC) Screen Detected H (NotDetected) Serum Alcohol mg/dL Disposition Clinical Impression: Adjustment reaction, Drug abuse Disposition: HOME SELF-CARE Condition: Good Instructions: Mood Disorders (ED), Polysubstance Abuse (ED) Is patient prescribed a controlled substance at d/c from ED?: No Referrals: [facility] [Primary Care Provider] - 1-2 days
[2018-07-01 12:39] VITALS: BP 117/60; PULSE 90; TEMP 82
== END 2018-07-01 12:45 | disposition home or self-care (01) ==
LOC: EC 04:06
DX: F43.20 Adjustment disorder, unspecified (principal); F31.9 Bipolar disorder, unspecified; F43.10 Post-traumatic stress disorder, unspecified; F90.9 Attention-deficit hyperactivity disorder, unspecified type; F41.9 Anxiety disorder, unspecified; F17.200 Nicotine dependence, unspecified, uncomplicated; Z96.611 Presence of right artificial shoulder joint; Z90.49 Acquired absence of other specified parts of digestive tract; Z90.710 Acquired absence of both cervix and uterus; Z98.890 Other specified postprocedural states; Z79.899 Other long term (current) drug therapy; Z88.6 Allergy status to analgesic agent; Z88.8 Allergy status to other drugs, medicaments and biological substances; Z91.018 Allergy to other foods; Z91.048 Other nonmedicinal substance allergy status
CPT/HCPCS: 36415; 80053; 80306; 80320; 81025; 82075; 85025; 93005; 99285

== ENCOUNTER → 2018-09-06 | Outpatient (CLI) | payer OTHER ==
--- NOTE | 2018-09-06 16:36 | XR ---
Cervical spine HISTORY: Neck pain 5 views of the cervical spine and 6 images There is no significant foraminal encroachment present. Cervical vertebral bodies show preserved heig ht, alignment, and bone mineralization. Reversal the normal cervical lordosis may be due to muscle sp asm. There is loss of disc height present at C5-6 with associated spondylosis as well as extent C4-5. IMPRESSION: Degenerative disc disease. Reversal cervical lordosis.
--- NOTE | 2018-09-06 16:38 | XR ---
Lumbar spine HISTORY: Low back pain 3 views of the lumbar spine Correlation to prior exam 07/27/2016 There is no significant interval change. Lumbar vertebral bodies show preserved height and alignment, bone mineralization. There is mild multilevel spondylosis. Sclerosis present in the posterior elemen ts of the lower lumbar spine. Disc spaces show a similar appearance, some mild loss of disc height narvaez spected L5-S1, possibly L2-3, L3-4. Atheromatous vascular calcifications are present. IMPRESSION: Degenerative disc disease and facet arthropathy.
--- NOTE | 2018-09-06 16:39 | XR ---
Thoracic spine HISTORY: Back pain 3 views of the thoracic spine, correlation prior exam 05/21/2016 There may be a gentle spinal curvature. Thoracic vertebral bodies show preserved height, alignment, a nd bone mineralization. Mild multilevel spondylosis of the lower levels. Disc spaces are maintained. IMPRESSION: Mild scoliosis. Thoracic spondylosis.
== END | disposition home or self-care (01) ==
LOC: RADXRMAIN 15:06
PROVIDERS: ATTEND Chiropractor
DX: M50.30 Other cervical disc degeneration, unspecified cervical region (principal); M51.36 Other intervertebral disc degeneration, lumbar region; M46.86 Other specified inflammatory spondylopathies, lumbar region; M47.814 Spondylosis without myelopathy or radiculopathy, thoracic region; M41.84 Other forms of scoliosis, thoracic region
CPT/HCPCS: 72050; 72072; 72100

== ENCOUNTER 2018-10-27 11:16 | Day surgery (SDC) | payer OTHER ==
[2018-10-25 13:18] VITALS: BMI 28.7
[~2018-10-27 11:16] MED LIST changes: -DEXAMETHASONE SOD PHOSPHATE 10 MG/ML 1 ML VIAL IV ONE; -HEPARIN SODIUM,PORCINE 5,000 UNIT/ML 1 ML VIAL SQ ONE; +LIDOCAINE 1% 20 ML VIAL (10MG/ML) FOR IV START INTRADERMA PRN; -ONDANSETRON 4 MG/2 ML VIAL IVP ONE; -ceFAZolin 2 GM in SODIUM CHLORIDE 0.9% 100 ML IVPB ONE
[2018-10-27 11:52] VITALS: TEMP 98.4
[2018-10-27] MEDS ORDERED: ONDANSETRON 4 MG/2 ML VIAL IVP ONE (12:08)
[2018-10-27] MEDS ORDERED: MIDAZOLAM 2 MG/2 ML VIAL IV ONE (12:09)
[2018-10-27] MEDS ORDERED: LIDOCAINE 1% INJ 10MG/ML (20 ML MDV) ONE (12:38)
[2018-10-27] MEDS ORDERED: PROPOFOL 10 MG/ML 20 ML VIAL IV ONE (12:38)
--- NOTE | 2018-10-27 12:43 | P.GSHP ---
History of Present Illness H&P Date: 10/27/18 Chief Complaint: GERD, diarrhea This a 43-year-old female who presents today for EGD and colonoscopy. Patient has had issues with GERD and diarrhea. Past Medical History Past Medical History: Asthma, GERD/Reflux, GI Bleed, Pneumonia, Respiratory Disorder Additional Past Medical History / Comment(s): HX CROHN'S, ULCERATIVE COLITIS, DIARRHEA DAILY. CHRONIC SHOULDER PAIN, BACK PAIN/DDD. HX SEPSIS FROM BROWN RECLUSE SPIDER BITE 2011. OCC BLOOD IN STOOL, VOMITING. BRONCHITIS FOR PAST WEEK. History of Any Multi-Drug Resistant Organisms: MRSA Date of last positivie culture/infection: 2000 MDRO Source:: abdomen Past Surgical History: Bowel Resection, Section, Cholecystectomy, Hysterectomy, Joint Replacement Additional Past Surgical History / Comment(s): C-S X2. RT SHOULDER REPLACEMENT Past Anesthesia/Blood Transfusion Reactions: No Reported Reaction Additional Past Anesthesia/Blood Transfusion Reaction / Comment(s): pt adopted Past Psychological History: ADD/ADHD, Anxiety, Bipolar, Depression, PTSD Smoking Status: Current every day smoker Past Alcohol Use History: Rare Additional Past Alcohol Use History / Comment(s): Smoked SINCE 1992, 1ppd EST Past Drug Use History: Marijuana Additional Drug Use History / Comment(s): USES DAILY - Past Family History Mother Family Medical History: Unable to Obtain Additional Family Medical History / Comment(s): pt adopted Medications and Allergies Home Medications Medication Instructions Recorded Confirmed Type Gabapentin [Neurontin] 800 mg PO TID 07/01/18 10/25/18 History Hydrocodone/Acetaminophen [Codorus 1 tab PO BID PRN 07/01/18 10/25/18 History 5-325] Ibuprofen [Motrin] 600 mg PO Q8HR PRN 07/01/18 10/25/18 History Omeprazole [PriLOSEC] 20 mg PO AC-BID PRN 07/01/18 10/25/18 History busPIRone HCL [Buspar] 30 mg PO DAILY 07/01/18 10/25/18 History Albuterol Nebulized (Conc) 2.5 mg INHALATION DIRECTED PRN 10/25/18 10/25/18 History [Ventolin Nebulized (Conc)] Loperamide HCl [Imodium A-D] 2 mg PO DIRECTED PRN 10/25/18 10/25/18 History Ondansetron HCl [Zofran] 8 mg PO DIRECTED PRN 10/25/18 10/25/18 History Allergies Allergy/AdvReac Type Severity Reaction Status Date / Time carbamazepine [From Tegretol] Allergy Itching Verified 10/25/18 12:46 corn Allergy Nausea & Verified 10/25/18 12:46 Vomiting & Diarrhea grass pollen-perennial rye, Allergy Itching Verified 10/25/18 12:46 standar [grass poll-perennial rye,std] ketorolac tromethamine Allergy Rash/Hives Verified 10/25/18 12:46 [From Toradol] promethazine [From Phenergan] Allergy Itching Verified 10/25/18 12:46 Surgical - Exam Vital Signs Temp Pulse Resp BP Pulse Ox 98.4 F 70 18 111/72 98 10/27/18 11:50 10/27/18 11:50 10/27/18 11:50 10/27/18 11:50 10/27/18 11:50 - General well developed, no distress - Eyes PERRL - ENT normal pinna - Neck no masses - Respiratory normal expansion - Cardiovascular Rhythm: regular - Abdomen Abdomen: soft, non tender Assessment and Plan Assessment: GERD, diarrhea. We'll perform EGD and colonoscopy.
--- NOTE | 2018-10-27 13:06 | P.OP ---
Date of Procedure: 10/27/18 Preoperative Diagnosis: GERD Diarrhea Postoperative Diagnosis: Antral gastritis Sigmoid colon biopsy pathology pending Procedure(s) Performed: EGD Colonoscopy Anesthesia: MAC Surgeon: Loki Dahl Pathology: other (Antrum, sigmoid colon) Condition: stable Disposition: PACU Description of Procedure: Patient's placed on the endoscopy table in the lateral position. She received IV sedation. The gastroscope placed oropharynx passed in the esophagus and stomach. Scope was then placed through the pylorus. The first and second portion of duodenum appeared normal. Scope summer back the antrum this was mildly inflamed. A biopsies performed. The scope was then retroflexed and the remainder of the stomach appeared normal. The GE junction was at 40 cm the distal esophagus appeared normal. The proximal esophagus appeared normal. Scope was withdrawn. Next digital rectal exam was performed which revealed no abnormalities. The flexible colonoscope was then placed patient anus and passed throughout the entire colon. The ileocecal valve was visualized. The cecum, ascending and transverse colon appeared normal. Scope was brought back in the descending and sigmoid colon and this was normal. Due to the patient's complaints of diarrhea a random sigmoid colon biopsy performed with a cold forcep. The scope was then brought back the rectum and this appeared normal. Scope was withdrawn for patient.
[2018-10-27 13:11] VITALS: RESP 16
[2018-10-27] MEDS ORDERED: HYDROmorphone 0.5 MG/0.5 ML SYRINGE IVP ONE (13:40)
[2018-10-27 13:52] VITALS: BP 97/55; PULSE 64
== END 2018-10-27 14:05 | disposition home or self-care (01) ==
LOC: ORWHC2ENDO 11:16
PROVIDERS: ATTEND Surgery
DX: K29.50 Unspecified chronic gastritis without bleeding (principal); K21.9 Gastro-esophageal reflux disease without esophagitis; J45.909 Unspecified asthma, uncomplicated; M25.519 Pain in unspecified shoulder; G89.29 Other chronic pain; F90.9 Attention-deficit hyperactivity disorder, unspecified type; F41.9 Anxiety disorder, unspecified; F31.9 Bipolar disorder, unspecified; F43.10 Post-traumatic stress disorder, unspecified; F17.210 Nicotine dependence, cigarettes, uncomplicated; Z87.19 Personal history of other diseases of the digestive system; Z90.49 Acquired absence of other specified parts of digestive tract; Z90.710 Acquired absence of both cervix and uterus; Z96.611 Presence of right artificial shoulder joint; Z79.899 Other long term (current) drug therapy; Z88.8 Allergy status to other drugs, medicaments and biological substances; Z91.018 Allergy to other foods; Z86.14 Personal history of Methicillin resistant Staphylococcus aureus infection
CPT/HCPCS: 45380; 43239; J2250; J2405; J2001; J2704; J1170; 88305

== ENCOUNTER → 2018-12-01 | Outpatient (CLI) | payer OTHER ==
--- NOTE | 2018-12-01 12:16 | CONS ---
CONSULTATION DATE OF SERVICE: 12/01/2017 A 43-year-old lady who [facility] for sleep problem including difficulties to initiate sleep and multiple awakenings from sleep. HISTORY OF PRESENT ILLNESS/SLEEP-WAKE EVALUATION: Patient's usual sleep schedule from 10 p.m. to around 8 a.m. basically 7 days a week. She does have problem with falling asleep, although no TV in bedroom. She usually sleeps from the side position. She snores quite loudly, grinding teeth, has multiple awakenings from sleep around 10 times with dry mouth, heartburn, sweating, and up to 4 episodes of nocturia. She moves her arms sometimes during the night possibly with out of dream movements. In the morning, she wakes up tired, worries about her sleep, has problem with concentration, irritability. Gordon Sleepiness Scale is 7. PAST MEDICAL HISTORY: Positive for Crohn's disease, shoulder problems. PAST SURGICAL HISTORY: Bowel resection, cholecystectomy, C-sections x3. Right shoulder replacement, partial hysterectomy. SOCIAL HISTORY: Positive for smoking for 20 pack years. Alcohol consumption occasionally. MEDICATIONS: Probiotics, digestive enzymes, Neurontin. FAMILY HISTORY: Sleep apnea, cancer, headaches, insomnia, restless legs versus reflex. REVIEW OF SYSTEMS: Difficulties to initiate sleep, multiple awakenings from sleep, sleepiness during the day. Patient takes naps around 2 pm once a day, sometimes sleep with vivid dreams. PHYSICAL EXAM: lady without distress, BP 103/63, HR 58, RR 16, height 64, weight 156, body mass index 26.7, temperature 98.7, oxygen saturation at room air 99%. OROPHARYNX: Extremely low position of soft palate. Mallampati IV. Neck 14 inches in circumference. Neck Supple, no JVD. Thyroid is not palpable. LUNGS Clear to percussion and to auscultation. Good air exchange. No wheezing or rhonchi. HEART S1, S2 regular. No murmurs, gallops, or rubs. ABDOMEN Soft and nontender. Bowel sounds are present. No organomegaly appreciated. EXTREMITIES No clubbing or cyanosis. [employer] Awake, alert, and oriented X3. Cranial nerves 2 to 7 intact. There is no fasciculation or atrophy. noted. No focal deficits observed. IMPRESSION: 1. Snoring, multiple awakenings from sleep with dry mouth and nocturia, extremely low position of soft palate, loud snoring and obstructive sleep apnea-hypopnea syndrome. 2. Difficulties to initiate sleep, psychophysiological insomnia. 3. Possible REM sleep behavioral disorder, sometimes out of dream movements. 4. History of Crohn's disease. 5. Status post bowel resection. 6. Status post cholecystectomy. 7. Status post x3. 8. Status post right shoulder replacement in 2008. 9. Status post partial hysterectomy. PLAN: 1. Polysomnography for evaluation of patient's breathing during sleep. 2. CPAP/BiPAP titration if sleep study confirms obstructive sleep apnea-hypopnea syndrome. 3. Preferable position during sleep on the side. No driving if patient feels any sleepiness. 4. I will see patient for follow up visit to explain results of testing and following plan. 5. Psychophysiological techniques for treatment of insomnia. Sincerely, Lc Hayes MD, PhD, FAASM Diplomat of [place] [employer] [place] [employer] Supervisor of [facility] [place] Thank you very much. Did the recommended to come to the sleep clinic for a complete air fill. Sincerely, end 19. MMODL / IJN: [id number] /
== END | disposition home or self-care (01) ==
LOC: SLEEP 10:56
PROVIDERS: ATTEND Internal Medicine
DX: G47.33 Obstructive sleep apnea (adult) (pediatric) (principal); F17.200 Nicotine dependence, unspecified, uncomplicated; Z87.19 Personal history of other diseases of the digestive system; Z90.49 Acquired absence of other specified parts of digestive tract; Z90.711 Acquired absence of uterus with remaining cervical stump; Z79.899 Other long term (current) drug therapy; Z98.890 Other specified postprocedural states
CPT/HCPCS: 99211

== ENCOUNTER 2019-03-24 23:16 | Emergency (ER) | payer OTHER ==
[2019-03-24 23:26] VITALS: TEMP 98.1
[2019-03-24] MEDS ORDERED: SODIUM CHLORIDE 0.9% 1,000 ML IV STA ×2 (23:47)
[2019-03-25 00:17] LABS: Basophils % (A) 1 %; Eosinophils # (A) 0.1 k/uL (0-0.7); Eosinophils % (A) 2 %; HCT 34.3 % (34.0-46.0); HGB 12.1 gm/dL (11.4-16.0); Lymphocytes # (A) 1.6 k/uL (1.0-4.8); Lymphocytes % (A) 31 %; MCH 33.9 pg (25.0-35.0); MCHC 35.2 g/dL (31.0-37.0); MCV 96.2 fL (80.0-100.0); Mean Platelet Volume 7.9; Monocytes # (A) 0.5 k/uL (0-1.0); Monocytes % (A) 9 %; Neutrophils # (A) 2.8 k/uL (1.3-7.7); Neutrophils % (A) 54 %; Platelet Count 213 k/uL (150-450); RBC 3.56 m/uL (3.80-5.40); RDW 12.3 % (11.5-15.5); WBC 5.2 k/uL (3.8-10.6)
--- NOTE | 2019-03-25 00:20 | ED ---
Dizziness HPI <Miguel Lara - Last Filed: 03/25/19 01:12> - General Source: family, RN notes reviewed, old records reviewed Mode of arrival: ambulatory Limitations: no limitations <Joan Ty - Last Filed: 03/25/19 03:05> - General Chief Complaint: Dizziness Stated Complaint: Bilateral Ear Pressure/Dizzy/Lightheaded Time Seen by Provider: 03/24/19 23:30 - History of Present Illness Initial Comments: Patient is a 43-year-old female presents emergency department today with her boyfriend. She complains of onset of dizziness, left-sided upper and lower extremity weakness starting 3 hours ago. Patient relates that she was recently staying with people that she knew were high on meth. Patient states that she feels like some limited poison her. 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 She spoke to follow-up with a specialist in [place] in the beginning of March. Patient states that she feels very tired and fatigued and states that her head feels heavy. She complains of left-sided ear pain. She states that the room does not feel like it spinning. (Joan Ty) - Related Data Home Medications Medication Instructions Recorded Confirmed Gabapentin [Neurontin] 800 mg PO TID 07/01/18 10/25/18 Hydrocodone/Acetaminophen [[place] 1 tab PO BID PRN 07/01/18 10/25/18 5-325] Ibuprofen [Motrin] 600 mg PO Q8HR PRN 07/01/18 10/25/18 Omeprazole [PriLOSEC] 20 mg PO AC-BID PRN 07/01/18 10/25/18 busPIRone HCL [Buspar] 30 mg PO DAILY 07/01/18 10/25/18 Albuterol Nebulized (Conc) 2.5 mg INHALATION DIRECTED PRN 10/25/18 10/25/18 [Ventolin Nebulized (Conc)] Loperamide HCl [Imodium A-D] 2 mg PO DIRECTED PRN 10/25/18 10/25/18 Ondansetron HCl [Zofran] 8 mg PO DIRECTED PRN 10/25/18 10/25/18 Allergies Allergy/AdvReac Type Severity Reaction Status Date / Time carbamazepine [From Tegretol] Allergy Itching Verified 03/24/19 23:26 corn Allergy Nausea & Verified 03/24/19 23:26 Vomiting & Diarrhea grass pollen-perennial rye, Allergy Itching Verified 03/24/19 23:26 standar [grass poll-perennial rye,std] ketorolac tromethamine Allergy Rash/Hives Verified 03/24/19 23:26 [From Toradol] promethazine [From Phenergan] Allergy Itching Verified 03/24/19 23:26 Review of Systems ROS Other: All systems not noted in ROS Statement are negative. <Miguel Lara - Last Filed: 03/25/19 01:12> ROS Other: All systems not noted in ROS Statement are negative. <Joan Ty - Last Filed: 03/25/19 03:05> ROS Statement: Those systems with pertinent positive or pertinent negative responses have been documented in the HPI. Past Medical History Past Medical History: Asthma, GERD/Reflux, GI Bleed, Pneumonia, Respiratory Disorder Additional Past Medical History / Comment(s): HX CROHN'S, ULCERATIVE COLITIS, DIARRHEA DAILY. CHRONIC SHOULDER PAIN, BACK PAIN/DDD. HX SEPSIS FROM BROWN RECLUSE SPIDER BITE 2011. OCC BLOOD IN STOOL, VOMITING. BRONCHITIS FOR PAST WEEK. History of Any Multi-Drug Resistant Organisms: MRSA Date of last positivie culture/infection: 2000 MDRO Source:: abdomen Past Surgical History: Bowel Resection, Section, Cholecystectomy, Hysterectomy, Joint Replacement Additional Past Surgical History / Comment(s): C-S X2. RT SHOULDER REPLACEMENT Past Anesthesia/Blood Transfusion Reactions: No Reported Reaction Additional Past Anesthesia/Blood Transfusion Reaction / Comment(s): pt adopted Past Psychological History: ADD/ADHD, Anxiety, Bipolar, Depression, PTSD Smoking Status: Current every day smoker Past Alcohol Use History: Rare Past Drug Use History: Marijuana - Past Family History Mother Family Medical History: Unable to Obtain Additional Family Medical History / Comment(s): pt adopted <Joan Ty - Last Filed: 03/25/19 03:05> General Exam Limitations: no limitations General appearance: alert, in no apparent distress Head exam: Present: atraumatic, normocephalic, normal inspection Eye exam: Present: normal appearance, PERRL, EOMI. Absent: scleral icterus, conjunctival injection, periorbital swelling ENT exam: Present: normal exam, mucous membranes moist Neck exam: Present: normal inspection. Absent: tenderness, meningismus, lymphadenopathy Respiratory exam: Present: normal lung sounds bilaterally, wheezes (Some wheezing). Absent: respiratory distress, rales, rhonchi, stridor Cardiovascular Exam: Present: regular rate, normal rhythm, normal heart sounds. Absent: systolic murmur, diastolic murmur, rubs, gallop, clicks GI/Abdominal exam: Present: soft, normal bowel sounds. Absent: distended, tenderness, guarding, rebound, rigid Extremities exam: Present: normal inspection, full ROM, normal capillary refill. Absent: tenderness, pedal edema, joint swelling, calf tenderness Back exam: Present: normal inspection Neurological exam: Present: alert, CN II-XII intact Expanded Speech: Absent: fluid speech (Slurred speech noted) Cranial nerves: EOM's Intact: Normal, Facial Sensation: Normal Cerebellar function: Finger to Nose: Normal Upper motor neuron: Pronator Drift: Abnormal Left (Left-sided weakness shakiness.) Sensory exam: Upper Extremity Light Touch: Normal, Lower Extremity Light Touch: Normal Motor strength exam: RUE: 5, LUE: 4, RLE: 5, LLE: 4 Eye Response: (4) open spontaneously Motor Response: (6) obeys commands Verbal Response: (5) oriented Mobile Total: 15 Psychiatric exam: Present: normal affect, normal mood Skin exam: Present: warm, dry, intact, normal color. Absent: rash <Joan Ty - Last Filed: 03/25/19 03:05> - General Exam Comments Initial Comments: 43-year-old female. pill is groggy and lethargic. Slurred speech. (Joan Ty) Course Vital Signs 03/24/19 03/24/19 03/24/19 23:21 23:35 23:50 Temperature 98.1 F Pulse Rate 88 85 87 Respiratory 18 16 16 Rate Blood Pressure 114/52 104/58 110/70 O2 Sat by Pulse 97 98 97 Oximetry 03/25/19 03/25/19 03/25/19 00:00 00:13 00:28 Temperature Pulse Rate 82 92 75 Respiratory 16 16 16 Rate Blood Pressure 109/73 106/65 111/77 O2 Sat by Pulse 97 97 98 Oximetry 03/25/19 03/25/19 03/25/19 00:40 00:55 01:05 Temperature Pulse Rate 72 70 69 Respiratory 16 16 16 Rate Blood Pressure 102/52 93/48 96/47 O2 Sat by Pulse 97 98 96 Oximetry 03/25/19 03/25/19 01:20 02:00 Temperature Pulse Rate 72 72 Respiratory 16 18 Rate Blood Pressure 103/52 94/53 O2 Sat by Pulse 95 98 Oximetry EKG Findings - EKG Comments: EKG Findings:: EKG shows sinus rhythm normal ECG. Ventricular rate of 79 bpm. Intervals 116 ms. QRS duration 92 ms. QTQTC's recent A/433 ms. <Joan Ty - Last Filed: 03/25/19 03:05> Medical Decision Making - Lab Data Result diagrams: 03/25/19 00:01 03/25/19 00:01 <Miguel Lara - Last Filed: 03/25/19 01:12> - Lab Data Result diagrams: 03/25/19 00:01 03/25/19 00:01 - Radiology Data Radiology results: report reviewed <Joan Ty - Last Filed: 03/25/19 03:05> - Medical Decision Making PA attestation: I, Dr. Miguel Lara, personally saw and examined the patient. I have reviewed and agree with the resident/PA findings, including all diagnostic interpretations and treatment plans as written unless otherwise stated. I was present for the zaragoza portions of any procedures performed and inclusive time noted for any critical care statement. Patient is a 43-year-old female she presents today with 3 hours of acute neuro symptoms. Patient reports that she has a history of intracranial vessel stenosis. She reports that she has been feeling ataxic, dizzy with blurred vision. Physical examination showed ataxia to the left upper and left lower extremity however patient did demonstrate poor effort. She was given an NIH score of 3-4. Nonetheless, code stroke was paged given that patient was within 4 hours of onset of symptoms. CT brain and CT angioma was obtained showing no acute processes. Multiple times were made to establish contact with stroke neurologist to discuss patient case. Labs and imaging were reviewed by myself and radiologist. Patient ordered for aspirin. (Miguel Lara) Patient is a 33-year-old female with 3 hours of left-sided arm shaking and leg shaking. Patient has been ataxic and dizzy. Patient had code stroke completed an NIH she'll 3. CT of the brain and TORRES was negative for any acute process. Patient's was reevaluated and would have full range of motion of the upper and lower extremity noted. She appeared to be groggy and acting as if she was drug ged. She states she's been staying with people that have been using methamphetamine the past week. She denies any significant drug use. Patient's urine drug screen is positive for opiates, amphetamine, methamphetamine, benzodiazepines and THC. She admits to using marijuana and opiates today. I discussed this findings with Patient and her boyfriend was present. I discussed her weight to discuss the case with Dr. Lew and possibly admit the Patient for neuro consult. Patient states she would like to leave AGAINST MEDICAL ADVICE after the drug screen was revealed to her. (Joan Ty) - Lab Data Lab Results 03/25/19 03/25/19 03/25/19 Range/Units 00:01 00:01 00:01 WBC 5.2 (3.8-10.6) k/uL RBC 3.56 L (3.80-5.40) m/uL Hgb 12.1 (11.4-16.0) gm/dL Hct 34.3 (34.0-46.0) % MCV 96.2 (80.0-100.0) fL MCH 33.9 (25.0-35.0) pg MCHC 35.2 (31.0-37.0) g/dL RDW 12.3 (11.5-15.5) % Plt Count 213 (150-450) k/uL Neutrophils % 54 % Lymphocytes % 31 % Monocytes % 9 % Eosinophils % 2 % Basophils % 1 % Neutrophils # 2.8 (1.3-7.7) k/uL Lymphocytes # 1.6 (1.0-4.8) k/uL Monocytes # 0.5 (0-1.0) k/uL Eosinophils # 0.1 (0-0.7) k/uL Basophils # 0.0 (0-0.2) k/uL PT (9.0-12.0) sec INR (<1.2) APTT (22.0-30.0) sec Sodium 138 (137-145) mmol/L Potassium 3.5 (3.5-5.1) mmol/L Chloride 104 (98-107) mmol/L Carbon Dioxide 27 (22-30) mmol/L Anion Gap 7 mmol/L BUN 15 (7-17) mg/dL Creatinine 0.62 (0.52-1.04) mg/dL Est GFR (CKD-EPI)AfAm >90 (>60 ml/min/1.73 sqM) Est GFR (CKD-EPI)NonAf >90 (>60 ml/min/1.73 sqM) Glucose 101 H (74-99) mg/dL Plasma Lactic Acid Dion (0.7-2.0) mmol/L Calcium 9.0 (8.4-10.2) mg/dL Total Bilirubin 0.4 (0.2-1.3) mg/dL AST 26 (14-36) U/L ALT 21 (9-52) U/L Alkaline Phosphatase 65 (38-126) U/L Troponin I <0.012 (0.000-0.034) ng/mL Total Protein 6.4 (6.3-8.2) g/dL Albumin 4.1 (3.5-5.0) g/dL Urine Opiates Screen (NotDetected) Ur Oxycodone Screen (NotDetected) Urine Methadone Screen (NotDetected) Ur Propoxyphene Screen (NotDetected) Ur Barbiturates Screen (NotDetected) U Tricyclic Antidepress (NotDetected) Ur Phencyclidine Scrn (NotDetected) Ur Amphetamines Screen (NotDetected) U Methamphetamines Scrn (NotDetected) U Benzodiazepines Scrn (NotDetected) Urine Cocaine Screen (NotDetected) U Marijuana (THC) Screen (NotDetected) 03/25/19 03/25/19 03/25/19 Range/Units 00:01 01:15 01:33 WBC (3.8-10.6) k/uL RBC (3.80-5.40) m/uL Hgb (11.4-16.0) gm/dL Hct (34.0-46.0) % MCV (80.0-100.0) fL MCH (25.0-35.0) pg MCHC (31.0-37.0) g/dL RDW (11.5-15.5) % Plt Count (150-450) k/uL Neutrophils % % Lymphocytes % % Monocytes % % Eosinophils % % Basophils % % Neutrophils # (1.3-7.7) k/uL Lymphocytes # (1.0-4.8) k/uL Monocytes # (0-1.0) k/uL Eosinophils # (0-0.7) k/uL Basophils # (0-0.2) k/uL PT 10.3 (9.0-12.0) sec INR 1.0 (<1.2) APTT 26.8 (22.0-30.0) sec Sodium (137-145) mmol/L Potassium (3.5-5.1) mmol/L Chloride (98-107) mmol/L Carbon Dioxide (22-30) mmol/L Anion Gap mmol/L BUN (7-17) mg/dL Creatinine (0.52-1.04) mg/dL Est GFR (CKD-EPI)AfAm (>60 ml/min/1.73 sqM) Est GFR (CKD-EPI)NonAf (>60 ml/min/1.73 sqM) Glucose (74-99) mg/dL Plasma Lactic Acid Dion 1.1 (0.7-2.0) mmol/L Calcium (8.4-10.2) mg/dL Total Bilirubin (0.2-1.3) mg/dL AST (14-36) U/L ALT (9-52) U/L Alkaline Phosphatase (38-126) U/L Troponin I (0.000-0.034) ng/mL Total Protein (6.3-8.2) g/dL Albumin (3.5-5.0) g/dL Urine Opiates Screen Detected H (NotDetected) Ur Oxycodone Screen Not Detected (NotDetected) Urine Methadone Screen Not Detected (NotDetected) Ur Propoxyphene Screen Not Detected (NotDetected) Ur Barbiturates Screen Not Detected (NotDetected) U Tricyclic Antidepress Not Detected (NotDetected) Ur Phencyclidine Scrn Not Detected (NotDetected) Ur Amphetamines Screen Detected H (NotDetected) U Methamphetamines Scrn Detected H (NotDetected) U Benzodiazepines Scrn Detected H (NotDetected) Urine Cocaine Screen Not Detected (NotDetected) U Marijuana (THC) Screen Detected H (NotDetected) - Radiology Data Normal neck CTA. Normal head CTA. CT of the brain is negative for any acute intracranial process. (Joan Ty) Disposition <Miguel Lara - Last Filed: 03/25/19 01:12> Is patient prescribed a controlled substance at d/c from ED?: No Time of Disposition: 03:05 <Joan Ty - Last Filed: 03/25/19 03:05> Clinical Impression: Ataxia, Positive urine drug screen Disposition: ADMITTED IP TO THIS [facility] Condition: Stable Referrals: Agus Mercado MD [Primary Care Provider] - 1-2 days
[2019-03-25 00:37] LABS: ALT 21 U/L (9-52); AST 26 U/L (14-36); Albumin 4.1 g/dL (3.5-5.0); Alkaline Phosphatase 65 U/L (38-126); Anion Gap 7 mmol/L; Blood Urea Nitrogen 15 mg/dL (7-17); Carbon Dioxide 27 mmol/L (22-30); Chloride 104 mmol/L (98-107); Glucose 101 mg/dL (74-99); Sodium 138 mmol/L (137-145); Total Bilirubin 0.4 mg/dL (0.2-1.3); Total Protein 6.4 g/dL (6.3-8.2)
--- NOTE | 2019-03-25 00:38 | CT ---
EXAM: CT Head Without Intravenous Contrast CLINICAL HISTORY: ITS.REASON CT Reason: Neuro Deficits TECHNIQUE: Axial computed tomography images of the head/brain without intravenous contrast. CTDI is 51.2 mGy and DLP is 1230 mGy-cm. This CT exam was performed using one or more of the following dose reduction techniques: automated exposure control, adjustment of the mA and/or kV according to patient size, and/or use of iterative reconstruction technique. COMPARISON: No relevant prior studies available. FINDINGS: Brain: No intracranial hemorrhage or mass effect. No clear acute large vessel territorial infarct. Ventricles: Unremarkable. No ventriculomegaly. Bones/joints: Unremarkable. No acute fracture. Soft tissues: Unremarkable. Sinuses: Minimal sphenoethmoidal mucosal thickening. Mastoid air cells: Unremarkable as visualized. No mastoid effusion. IMPRESSION: No acute intracranial process
[2019-03-25 00:42] LABS: Potassium 3.5 mmol/L (3.5-5.1)
--- NOTE | 2019-03-25 00:45 | CT ---
EXAM: CT Angiography Head With Intravenous Contrast CLINICAL HISTORY: ITS.REASON CT Reason: Neuro Deficits TECHNIQUE: Axial computed tomographic angiography images of the head with intravenous contrast using CT angiography protocol. CTDI is 8.2 mGy and DLP is 379.8 mGy-cm. This CT exam was performed using one or more of the following dose reduction techniques: automated exposure control, adjustment of the mA and/or kV according to patient size, and/or use of iterative reconstruction technique. MIP reconstructed images were created and reviewed. COMPARISON: No relevant prior studies available. FINDINGS: Right internal carotid artery: No acute findings. Intracranial segment is patent with no significant stenosis. No aneurysm. Right anterior cerebral artery: Unremarkable. No occlusion or significant stenosis. No aneurysm. Right middle cerebral artery: Unremarkable. No occlusion or significant stenosis. No aneurysm. Right posterior cerebral artery: Unremarkable. No occlusion or significant stenosis. No aneurysm. Right vertebral artery: Unremarkable as visualized. Left internal carotid artery: No acute findings. Intracranial segment is patent with no significant stenosis. No aneurysm. Left anterior cerebral artery: Unremarkable. No occlusion or significant stenosis. No aneurysm. Left middle cerebral artery: Unremarkable. No occlusion or significant stenosis. No aneurysm. Left posterior cerebral artery: Unremarkable. No occlusion or significant stenosis. No aneurysm. Left vertebral artery: Unremarkable as visualized. Basilar artery: Unremarkable. No occlusion or significant stenosis. No aneurysm. IMPRESSION: Normal head CTA. EXAM: CT Angiography Neck With Intravenous Contrast CLINICAL HISTORY: ITS.REASON CT Reason: Neuro Deficits TECHNIQUE: Axial computed tomographic angiography images of the neck with intravenous contrast using CT angiography protocol. CTDI is 8.2 mGy and DLP is 379.8 mGy-cm. This CT exam was performed using one or more of the following dose reduction techniques: automated exposure control, adjustment of the mA and/or kV according to patient size, and/or use of iterative reconstruction technique. MIP reconstructed images were created and reviewed. COMPARISON: No relevant prior studies available. FINDINGS: VASCULATURE: Right common carotid artery: Unremarkable. No significant stenosis. No dissection or occlusion. Right internal carotid artery: Unremarkable. Extracranial segment is patent with no significant stenosis. No dissection or occlusion. Right external carotid artery: Unremarkable. No occlusion. Right vertebral artery: Unremarkable. No significant stenosis. No dissection or occlusion. Left common carotid artery: Unremarkable. No significant stenosis. No dissection or occlusion. Left internal carotid artery: Unremarkable. Extracranial segment is patent with no significant stenosis. No dissection or occlusion. Left external carotid artery: Unremarkable. No occlusion. Left vertebral artery: Unremarkable. No significant stenosis. No dissection or occlusion. NECK: Bones/joints: No acute fracture. No dislocation. Soft tissues: Unremarkable as visualized. No mass. CAROTID STENOSIS REFERENCE USING NASCET CRITERIA: % ICA stenosis = (1 - narrowest ICA diameter/diameter of distal cervical ICA) x 100. Mild - <50% stenosis. Moderate - 50-69% stenosis. Severe - 70-94% stenosis. Near occlusion - 95-99% stenosis. Occluded - 100% stenosis. IMPRESSION: Normal neck CTA.
--- NOTE | 2019-03-25 01:02 | XR ---
EXAM: XR Chest, 2 Views CLINICAL HISTORY: ITS.REASON XR Reason: altered mental status TECHNIQUE: Frontal and lateral views of the chest. COMPARISON: 09/06/17. FINDINGS: Lungs: Unremarkable. No consolidation. Pleural space: Unremarkable. No pneumothorax. Heart: Unremarkable. No cardiomegaly. Mediastinum: Unremarkable. Bones/joints: Stable foreshortening of the distal right clavicle. Suture anchor again noted in the right humeral head. IMPRESSION: No evidence of acute pulmonary disease
[2019-03-25] MEDS ORDERED: ASPIRIN 81 MG PO STA (01:14)
[2019-03-25 01:25] VITALS: PULSE 72
[2019-03-25 01:49] LABS: Amphetamine Screen,Urine Detected (NotDetected); Barbiturate Screen,Urine Not Detected (NotDetected); Benzodiazepines Screen,Urine Detected (NotDetected); Cocaine Screen,Urine Not Detected (NotDetected); Methadone Screen, Urine Not Detected (NotDetected); Opiate Screen,Urine Detected (NotDetected); Oxycodone Screen, Urine Not Detected (NotDetected); Phencyclidine Screen,Urine Not Detected (NotDetected); Tricyclic Antidepressant,Urine Not Detected (NotDetected); Urn Cannabinoid Scrn Detected (NotDetected)
[2019-03-25 02:02] LABS: Partial Thromboplastin Time 26.8 sec (22.0-30.0); Prothrombin Time 10.3 sec (9.0-12.0)
[2019-03-25 02:12] VITALS: BP 94/53; RESP 18
== END 2019-03-25 02:27 | disposition other institution (70) ==
LOC: EC 23:16
DX: R27.0 Ataxia, unspecified (principal); R82.5 Elevated urine levels of drugs, medicaments and biological substances; R53.1 Weakness; H92.02 Otalgia, left ear; J45.909 Unspecified asthma, uncomplicated; K21.9 Gastro-esophageal reflux disease without esophagitis; F41.9 Anxiety disorder, unspecified; F32.9 Major depressive disorder, single episode, unspecified; F43.10 Post-traumatic stress disorder, unspecified; F17.200 Nicotine dependence, unspecified, uncomplicated; Z86.69 Personal history of other diseases of the nervous system and sense organs; Z86.14 Personal history of Methicillin resistant Staphylococcus aureus infection; Z96.611 Presence of right artificial shoulder joint; Z79.899 Other long term (current) drug therapy; Z88.8 Allergy status to other drugs, medicaments and biological substances; Z91.018 Allergy to other foods; Z91.048 Other nonmedicinal substance allergy status; Z88.6 Allergy status to analgesic agent
CPT/HCPCS: 36415; 93005; 80053; 83605; 84484; 85025; 85610; 85730; 87040; 80306; 71046; 70496; 70450; 70498; 99285; 96360; 96361; Q9967